=== PATIENT | female | born 1960 | race Caucasian/White ===

== ENCOUNTER 2021-12-29 10:19 | Emergency (ER) | payer OTHER, SELFPAY ==
[2021-12-29 10:30] VITALS: BP 176/89; PULSE 67; O2SAT 94
[2021-12-29 10:32] VITALS: BP 176/89; PULSE 57; RESP 20; TEMP 36.1; O2SAT 98; BMI 42.5
--- NOTE | 2021-12-29 11:11 | CRLHL7_ITS ---
For Patients: As a result of the Cures Act, medical imaging exams and procedure reports are released immediately into your electronic medical record. You may view this report before your referring provider. If you have questions, please contact your health care provider. INDICATION: Fall with pain. TECHNIQUE: Cervical spine 3 view. COMPARISON: None. FINDINGS: Bones: Alignment is normal. No fractures or significant bone lesions. No signs of acute injury. Joints: Degenerative disc spondylosis present at C5-6 and C6-7. Mild diffuse facet joint spondylosis. Soft tissues: Unremarkable. Dictated by Jose Ramirez MD @ 12/29/2021 12:41:27 PM (Electronically Signed)
--- NOTE | 2021-12-29 11:11 | CRLHL7_ITS ---
For Patients: As a result of the Century Cures Act, medical imaging exams and procedure reports are released immediately into your electronic medical record. You may view this report before your referring provider. If you have questions, please contact your health care provider. INDICATION: Fall with back pain. TECHNIQUE: Thoracic spine 2 view. COMPARISON: None. FINDINGS: Bones: Alignment is normal. No fractures or significant bone lesions. No sign of acute injury. Joints: Mild diffuse disc space narrowing. Soft tissues: Unremarkable. Dictated by Jose Ramirez MD @ 12/29/2021 12:43:26 PM (Electronically Signed)
--- NOTE | 2021-12-29 11:13 | ED.FALL ---
HPI - Fall General Chief Complaint: Fall/Minor Trauma Stated Complaint: Fell, hurt back of head/shoulder, dizzy Time Seen by Provider: 12/29/21 10:47 History of Present Illness HPI Narrative: This 61-year-old female comes in for evaluation of injuries from a fall that occurred at work just prior to arrival. She states that she stepped backwards and tripped on a Pallet. She landed on her bottom and then onto her back. She is not sure if she hit her head. She did not have loss of consciousness. She is complaining of pain in her neck and upper back. She states that 4 people helped her get up to a chair and then she transferred to a electric scooter an order to come here by car. She is not on any blood thinners. She states that this occurrence has triggered her anxiety and she feels a bit tremulous. Related Data Home Medications Medication Instructions Recorded Confirmed albuterol sulfate 90 mcg/actuation inhalation 12/29/21 aerosol inhaler (Ventolin HFA) atorvastatin 20 mg tablet mg 12/29/21 benzonatate 100 mg capsule mg PO 12/29/21 clonazepam 0.5 mg tablet mg 12/29/21 gabapentin 300 mg capsule mg 12/29/21 hydroxyzine pamoate 50 mg capsule mg 12/29/21 levothyroxine 100 mcg tablet mcg 12/29/21 naproxen 500 mg tablet mg 12/29/21 prazosin 2 mg capsule mg 12/29/21 risperidone 0.5 mg tablet mg 12/29/21 sertraline 100 mg tablet mg 12/29/21 sertraline 50 mg tablet mg 12/29/21 zolpidem 5 mg tablet mg 12/29/21 Previous Rx's Medication Instructions Recorded ketorolac 10 mg tablet 10 mg PO Q8H 5 days #15 tabs 12/29/21 Allergies Allergy/AdvReac Type Severity Reaction Status Date / Time methohexital Allergy Verified 12/29/21 10:31 demerol Allergy Uncoded 12/29/21 10:31 Review of Systems Status of ROS: Reports: 10 or more systems reviewed and unremarkable except as noted in History and below Narrative: Constitutional: No fevers, no weight gain or loss. Eyes: No discharge. No vision changes. HENT: No congestion, no sore throat, no ear pain. Cardiovascular: No chest pain, no palpitations. Respiratory: No shortness of breath, no wheezes, no cough. Gastrointestinal: No abdominal pain, no vomiting, no diarrhea. Genitourinary: No dysuria, no hematuria. Musculoskeletal: Normal range of motion. She reports some diffuse neck and upper back pain. Skin: No rashes, no pruritis. Neurological: No dizziness, weakness, sensory change, speech change. Endo/Heme/Allergies: No bruising or bleeding. No polydipsia. Pysch: no suicidality, no anxiety, no insomnia. All other systems reviewed and are negative. PFSH PFS Social History Smoking Status: Never smoker Do you use any of these nicotine containing products: None Second hand tobacco smoke exposure: No How often do you have a drink containing alcohol: never How often do you have six or more drinks on one occasion: Never AUDIT-C Alcohol total score: 0 Non-prescribed substance use: denies use Exam Narrative: Exam Narrative: Constitutional: No fevers, no weight gain or loss. Eyes: No discharge. No vision changes. HENT: No congestion, no sore throat, no ear pain. No sign of trauma to the scalp. No hematoma or skin injury. Cardiovascular: No chest pain, no palpitations. Respiratory: No shortness of breath, no wheezes, no cough. Gastrointestinal: No abdominal pain, no vomiting, no diarrhea. Genitourinary: No dysuria, no hematuria. Musculoskeletal: Normal range of motion. Diffuse pain in neck and upper back. No midline tenderness when palpating along her spine. No sign of external injury. Skin: No rashes, no pruritis. Neurological: No dizziness, weakness, sensory change, speech change. Endo/Heme/Allergies: No bruising or bleeding. No polydipsia. Pysch: no suicidality, no anxiety, no insomnia. All other systems reviewed and are negative. Const: Vital Signs, click to edit/add: Vital Signs - 24 hr 12/29/21 10:32 12/29/21 10:30 12/29/21 12:05 Temperature 96.9 F L Pulse Rate [Pulse Oximeter] 57 L 67 57 L Respiratory Rate 20 Blood Pressure [Le ft Forearm] 176/89 H 176/89 H 152/85 H Pulse Oximetry 98 94 95 Oxygen Delivery Me thod Room Air Room Air Room Air 12/29/21 11:30 Temperature Pulse Rate [Pulse Oximeter] 52 L Respiratory Rate Blood Pressure [Le ft Forearm] Pulse Oximetry 96 Oxygen Delivery Me thod Room Air Course Vital Signs Vital signs: Initial Vital Signs Pulse Rate 67 12/29/21 10:30 Blood Pressure 176/89 H 12/29/21 10:30 Blood Pressure Mean 118 12/29/21 10:30 Pulse Oximetry 94 12/29/21 10:30 Oxygen Delivery Method 12/29/21 10:30 Vital Signs Pulse Rate 67 12/29/21 10:30 Blood Pressure 176/89 H 12/29/21 10:30 Pulse Oximetry 94 12/29/21 10:30 Oxygen Delivery Method 12/29/21 10:30 Temperature 96.9 F L 12/29/21 10:32 Pulse Rate 57 L 12/29/21 12:05 Respiratory Rate 20 12/29/21 10:32 Blood Pressure 152/85 H 12/29/21 12:05 Pulse Oximetry 95 12/29/21 12:05 Oxygen Delivery Method 12/29/21 12:05 MDM - Fall MDM Narrative Medical decision making narrative: This patient comes in for evaluation after a fall that occurred at work prior to arrival. She did not have loss of consciousness. She is not showing any sign of neurologic deficit or altered level of consciousness. She does not have any scalp hematoma or injury to her head. She denies hitting her head and did not have loss of consciousness. She did complain of some neck and upper back pain. X-ray images of the cervical and thoracic spine returned with normal findings. The patient did receive an oral tablet of Ativan 0.5 mg which brought some relief to her anxiety symptoms and in directly to her discomfort also. Imaging Data XR Cervical Spine: Radiologist's impression: Bones: Alignment is normal. No fractures or significant bone lesions. No signs of acute injury. Joints: Degenerative disc spondylosis present at C5-6 and C6-7. Mild diffuse facet joint spondylosis. Soft tissues: Unremarkable. Discharge Plan Discharge Clinical Impression: Acute cervical myofascial strain, Fall Patient Disposition: Home, Self-Care Condition: Stable Additional Instructions: Take medication as needed and indicated. Increase activity as tolerated. Follow up with MD or return if worsening. Prescriptions: New ketorolac 10 mg tablet 10 mg PO Q8H 5 Days Qty: 15 0RF No Action atorvastatin 20 mg tablet clonazepam 0.5 mg tablet Label Comments: TAKE 1 TABLET BY MOUTH ONCE DAILY sertraline 100 mg tablet hydroxyzine pamoate 50 mg capsule levothyroxine 100 mcg tablet benzonatate 100 mg capsule PO Label Comments: TAKE 1 CAPSULE BY MOUTH THREE TIMES DAILY NEEDED FOR COUGH gabapentin 300 mg capsule Label Comments: TAKE 1 CAPSULE BY MOUTH THREE TIMES DAILY zolpidem 5 mg tablet Label Comments: TAKE 1 TABLET BY MOUTH AT BEDTIME NEEDED FOR SLEEP albuterol sulfate [Ventolin HFA] 90 mcg/actuation HFA aerosol inhaler INHALATION Label Comments: INHALE 1 TO 2 PUFFS BY MOUTH EVERY 4 HOURS NEEDED FOR SHORTNESS OF BREATH OR WHEEZING sertraline 50 mg tablet Label Comments: TAKE 3 TABLETS BY MOUTH ONCE DAILY risperidone 0.5 mg tablet Label Comments: TAKE 1 TABLET BY MOUTH AT BEDTIME prazosin 2 mg capsule Label Comments: TAKE 1 CAPSULE BY MOUTH AT BEDTIME naproxen 500 mg tablet Label Comments: TAKE 1 TABLET BY MOUTH EVERY 12 HOURS NEEDED FOR PAIN Follow Up/Referrals: Joyce Dean DO [Primary Care Provider] - Stand Alone Forms: [facility] Info Instructions
[2021-12-29] MEDS: LORazepam 0.5 MG TABLET PO (11:14)
[2021-12-29 11:30] VITALS: PULSE 52; O2SAT 96
[2021-12-29 12:05] VITALS: BP 152/85; PULSE 57; O2SAT 95
[2021-12-29 13:00] VITALS: BP 154/78; PULSE 59; O2SAT 97
== END 2021-12-29 13:08 | disposition home or self-care (01) ==
PROVIDERS: Emergency Provider Emergency Medicine Emergency Medical Services; PCP Family Medicine
DX: S16.1XXA Strain of muscle, fascia and tendon at neck level, initial encounter (principal); W01.0XXA Fall on same level from slipping, tripping and stumbling without subsequent striking against object, initial encounter; Y93.9 Activity, unspecified; Y92.9 Unspecified place or not applicable; Y99.0 Civilian activity done for income or pay
CPT/HCPCS: 72040; 72070; 99283; 99284; A9270

== ENCOUNTER 2022-01-07 19:59 | Inpatient (IN) | payer OTHER, SELFPAY ==
[2022-01-07 20:00] VITALS: BP 139/109; PULSE 79; RESP 16; TEMP 35.8; O2SAT 94
[2022-01-07 20:13] VITALS: BP 139/109; BP 148/87; PULSE 79; RESP 16; TEMP 35.8; O2SAT 96; BMI 25.2
[2022-01-07 20:30] VITALS: BP 128/74
[2022-01-07 20:40] VITALS: O2SAT 98
--- NOTE | 2022-01-07 20:40 | ED.GENADULT ---
HPI - General Adult General Time Seen by Provider: 00:56 <Jos Wang MD - Last Filed: 01/08/22 01:09> Date Seen: 01/08/22 <Jos Wang MD - Last Filed: 01/08/22 01:09> Chief complaint: Abdominal Pain <Emily Roman MD - Last Filed: 01/16/22 22:12> Stated complaint: Intense pain in upper ABD, Vomiting <Emily Roman MD - Last Filed: 01/16/22 22:12> Time Seen by Provider: 01/07/22 20:16 <Emily Roman MD - Last Filed: 01/16/22 22:12> Source: patient <Emily Roman MD - Last Filed: 01/16/22 22:12> Mode of arrival: ambulatory <Emily Roman MD - Last Filed: 01/16/22 22:12> Limitations: no limitations <Emily Roman MD - Last Filed: 01/16/22 22:12> History of Present Illness HPI narrative: 61-year-old female coming in today concerned about nausea and vomiting as well as epigastric pain. She states that she has had nausea and vomiting for the last 11 days straight. She states that she vomits any time she puts anything her mouth, and she states that she has at least 7-8 bowel movements per day on a good day. She is concerned because she has not been able to keep down her medication also. She denies any weight loss. She denies any blood in her stool or urine. She states that she is urinating normally without dysuria increased frequency or urgency, she continues to urinate every day. She describes an epigastric burning sensation that is present all the time. Gets worse when she vomits. She she states she has been having fevers on and off and she feels hot and sweaty often times. She denies any rashes. She denies any recent traveling. She denies any shortness of breath. She denies any lower abdominal discomfort. Denies any recent antibiotic use. Past medical history significant for anxiety, depression, insomnia, hypothyroidism, hyperlipidemia, obesity, asthma. <Emily Roman MD - Last Filed: 01/16/22 22:12> 61-year-old female presents with 2 week history of on and off vomiting diarrhea and burning epigastric pain. This began about 2 weeks ago. She is concerned it occurred related to an incident at work where the toilets were backing up and she was tasked with cleaning up the mass. She believes she had exposure from the water splashing into her face. Within a few hours of being at work she became ill with vomiting and diarrhea. He was fairly severe for about 5 days but then she seemed to get better for a few days and then about 5 days ago it started in again with the same symptoms. For the last 5 days she has had vomiting a few times a day, diarrhea multiple times a day and persistent epigastric burning sensation. She has been unable to keep down significant food or fluid. She has had no fever. There has not been no blood in her emesis but she did wonder if her diarrhea was red in color. Her looked at the stool water and thought it might have been due to the red Gatorade that she was drinking. She has had no previous history of significant gastrointestinal problems. No history of epigastric pain diarrhea or vomiting. She may have had a history of a gastric ulcer in the past. She has had a cholecystectomy. She reports no urinary problems. No shortness of breath. She has no chest pain but she does report that the epigastric burning is right below the distal breast bone area. It feels to her like it is coming from her stomach. She has had no other exposures. No travel history. No recent antibiotics. <Jos Wang MD - Last Filed: 01/08/22 01:09> Related Data Home medications: Home Medications Medication Instructions Recorded Confirmed atorvastatin 20 mg tablet 20 mg PO HS 12/29/21 01/08/22 clonazepam 0.5 mg tablet 0.5 mg PO HS 12/29/21 01/08/22 gabapentin 300 mg capsule 300 mg PO TID 12/29/21 01/08/22 hydroxyzine pamoate 50 mg capsule 50 mg PO Q6H PRN nausea and 12/29/21 01/08/22 vomiting levothyroxine 100 mcg tablet 100 mcg PO DAILY 12/29/21 01/08/22 diclofenac sodium 1 % topical gel 4 g topical QID PRN 01/08/22 01/08/22 propranolol 10 mg tablet 10 mg PO BID 01/08/22 01/08/22 sertraline 100 mg tablet 150 mg PO DAILY 01/08/22 01/08/22 zolpidem 6.25 mg tablet,extended 6.25 mg PO HS 01/08/22 01/08/22 release,multiphase Previous Rx's Medication Instructions Recorded nirmatrelvir 300 mg (150 mg 2 ea PO BID 4 days #16 ea 01/09/22 x2)-ritonavir 100 mg tablet,dose pack(EUA) omeprazole 20 mg capsule,delayed 20 mg PO DAILY PRN #30 caps 01/09/22 release vancomycin 125 mg capsule 125 mg PO QID #40 caps 01/09/22 <Emily Roman MD - Last Filed: 01/16/22 22:12> Allergies/adverse reactions: Allergies Allergy/AdvReac Type Severity Reaction Status Date / Time methohexital Allergy Verified 01/08/22 02:42 demerol Allergy Uncoded 01/07/22 23:46 <Emily Roman MD - Last Filed: 01/16/22 22:12> Review of Systems Status of ROS: Reports: 10 or more systems reviewed and unremarkable except as noted in History and below <Emily Roman MD - Last Filed: 01/16/22 22:12> Narrative: She reports no other health concerns recently. No fever, cold, cough, chest pain, shortness of breath, abdominal pain other than the last 2 weeks or gastrointestinal problems other than the last 2 weeks. No urinary problems no history of bleeding or blood clotting problems no rash. <Jos Wang MD - Last Filed: 01/08/22 01:09> [facility] Medical History: Medical History (Updated 01/13/22 @ 00:00 by ) Anxiety COVID-19 virus infection Depression Gastroesophageal reflux History of electroconvulsive therapy Hyperlipidemia Hypothyroidism Obstructive sleep apnea PTSD (post-traumatic stress disorder) <Emily Roman MD - Last Filed: 01/16/22 22:12> Surgical History: Surgical History (Updated 01/08/22 @ 01:04 by Jos Wang MD) History of cholecystectomy History of colonoscopy History of D&C History of hysterectomy History of repair of right rotator cuff History of total knee arthroplasty Hx of tonsillectomy <Emily Roman MD - Last Filed: 01/16/22 22:12> Family History: Family History (Updated 01/08/22 @ 01:04 by Jos Wang MD) Mother Alzheimers disease Father Coronary artery disease Thyroid disease <Emily Roman MD - Last Filed: 01/16/22 22:12> Social History: Social History (Updated 01/08/22 @ 01:06 by Jos Wang MD) Narrative: 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 She works at [employer]. She gets primary care at the [facility] in [place]. Code status is full. She does not smoke. She does not drink alcohol. No current recreational drug use Highest level of school completed/degree received: high school graduate Smoking Status: Never smoker Do you use any of these nicotine containing products: None Second hand tobacco smoke exposure: No How often do you have a drink containing alcohol: never How often do you have six or more drinks on one occasion: Never AUDIT-C Alcohol total score: 0 Non-prescribed substance use: denies use Caffeine: Yes (Coffee Daily.) <Emily Roman MD - Last Filed: 01/16/22 22:12> Exam Narrative: Exam Narrative: Patient is not tachypneic, tachycardic or hypotensive. Overweight patient in no acute distress, but she is quite anxious. Alert and oriented. Answers questions appropriately. Patient speaks in full sentences without needing to catch her breath. HEENT: Normocephalic atraumatic. Pupils are equally round reactive to light. Extraocular muscles are intact. Conjunctivae are moist without any icterus noted. Moist mucous membranes. Posterior pharynx is normal. Neck is soft without any lymphadenopathy or thyromegaly. No masses are appreciated. Cardiovascular: Heart is regular rate and rhythm S1 and S2 are present without any murmurs. Lungs: Clear to auscultation bilaterally no wheezes rhonchi or rales are appreciated. Patient takes deep breaths without any discomfort. Abdomen: Soft and nondistended with normal bowel sounds. No guarding or rebound. She has minimal epigastric tenderness on palpation. No right upper quadrant or left upper quadrant tenderness. The remainder of the abdomen is without tenderness. Extremities: Bilateral lower extremities are without edema. Normal DP and PT pulses. Skin: Well perfused without any obvious rashes. <Emily Roman MD - Last Filed: 01/16/22 22:12> Exam Narrative: She is alert and appears in no distress. She is tired appearing. She gives her own history. She is oriented to her circumstances. Head is without trauma. Eyes are normal. Sclerae nonicteric. Oropharynx with dry mucous membranes. Neck is supple without mass or adenopathy. Respirations are clear to auscultation. Cardiovascular: S1, S2, regular rate and rhythm. No murmur gallop or rub. Abdomen: Bowel sounds active. Abdomen is soft without tenderness or mass. External genitalia normal. Extremities with 1+ edema in both legs. Intact pedal pulses and sensation. No rash. <Jos Wang MD - Last Filed: 01/08/22 01:09> Const: Vital Signs, click to edit/add: Vital Signs - 24 hr 01/07/22 20:13 01/07/22 20:40 01/07/22 20:51 Temperature 96.4 F L Pulse Rate 73 Pulse Rate [Left P ulse Oximeter] 79 Respiratory Rate 16 Blood Pressure [Ri ght Upper Arm] 139/109 H Pulse Oximetry 96 98 94 Oxygen Delivery Me thod Room Air 01/07/22 20:00 01/07/22 20:13 01/07/22 20:30 Temperature 96.4 F L Pulse Rate Pulse Rate [Left P ulse Oximeter] 79 Respiratory Rate 16 Blood Pressure [Ri ght Upper Arm] 139/109 H 148/87 H 128/74 Pulse Oximetry 94 Oxygen Delivery Me thod Room Air <Emily Roman MD - Last Filed: 01/16/22 22:12> Vital Signs, click to edit/add: Vital Signs - 24 hr 01/07/22 20:13 01/07/22 20:40 01/07/22 20:51 Temperature 96.4 F L Pulse Rate 73 Pulse Rate [Left P ulse Oximeter] 79 Respiratory Rate 16 Blood Pressure [Ri ght Upper Arm] 139/109 H Pulse Oximetry 96 98 94 Oxygen Delivery Me thod Room Air 01/07/22 20:00 01/07/22 20:13 01/07/22 20:30 Temperature 96.4 F L Pulse Rate Pulse Rate [Left P ulse Oximeter] 79 Respiratory Rate 16 Blood Pressure [Ri ght Upper Arm] 139/109 H 148/87 H 128/74 Pulse Oximetry 94 Oxygen Delivery Me thod Room Air <Dotty Lester MD - Last Filed: 01/08/22 00:25> Vital Signs, click to edit/add: Vital Signs - 24 hr 01/07/22 20:13 01/07/22 20:40 01/07/22 20:51 Temperature 96.4 F L Pulse Rate 73 Pulse Rate [Left P ulse Oximeter] 79 Respiratory Rate 16 Blood Pressure [Ri ght Upper Arm] 139/109 H Pulse Oximetry 96 98 94 Oxygen Delivery Me thod Room Air 01/07/22 20:00 01/07/22 20:13 01/07/22 20:30 Temperature 96.4 F L Pulse Rate Pulse Rate [Left P ulse Oximeter] 79 Respiratory Rate 16 Blood Pressure [Ri ght Upper Arm] 139/109 H 148/87 H 128/74 Pulse Oximetry 94 Oxygen Delivery Me thod Room Air <Jos Wang MD - Last Filed: 01/08/22 01:09> Course Course Hospital Course: IV was established and patient was started with normal saline and Zofran. Labs were drawn. Given the location of her discomfort I did go ahead and do an EKG as well, read by me, shows normal sinus rhythm with a pulse of 76. At this time, care will be transferred to oncoming physician. <Emily Roman MD - Last Filed: 01/16/22 22:12> Vital Signs Vital signs: Initial Vital Signs Temperature 96.4 F L 01/07/22 20:00 Temperature Source Temporal Artery Scan 01/07/22 20:00 Pulse Rate 79 01/07/22 20:00 Pulse Rhythm 01/07/22 20:00 Pulse Strength 3+ Normal 01/07/22 20:00 Respiratory Rate 16 01/07/22 20:00 Blood Pressure 139/109 H 01/07/22 20:00 Blood Pressure Mean 119 01/07/22 20:00 Pulse Oximetry 94 01/07/22 20:00 Oxygen Delivery Method 01/07/22 20:00 Vital Signs Temperature 96.4 F L 01/07/22 20:00 Pulse Rate 79 01/07/22 20:00 Respiratory Rate 16 01/07/22 20:00 Blood Pressure 139/109 H 01/07/22 20:00 Pulse Oximetry 94 01/07/22 20:00 Oxygen Delivery Method 01/07/22 20:00 Temperature 97.5 F L 01/09/22 11:00 Pulse Rate 65 01/09/22 11:00 Respiratory Rate 16 01/09/22 11:00 Blood Pressure 140/96 H 01/09/22 11:00 Pulse Oximetry 93 01/09/22 11:00 Oxygen Delivery Method 01/09/22 11:00 <Emily Roman MD - Last Filed: 01/16/22 22:12> Initial Vital Signs Temperature 96.4 F L 01/07/22 20:00 Temperature Source Temporal Artery Scan 01/07/22 20:00 Pulse Rate 79 01/07/22 20:00 Pulse Rhythm 01/07/22 20:00 Pulse Strength 3+ Normal 01/07/22 20:00 Respiratory Rate 16 01/07/22 20:00 Blood Pressure 139/109 H 01/07/22 20:00 Blood Pressure Mean 119 01/07/22 20:00 Pulse Oximetry 94 01/07/22 20:00 Oxygen Delivery Method 01/07/22 20:00 Vital Signs Temperature 96.4 F L 01/07/22 20:00 Pulse Rate 79 01/07/22 20:00 Respiratory Rate 16 01/07/22 20:00 Blood Pressure 139/109 H 01/07/22 20:00 Pulse Oximetry 94 01/07/22 20:00 Oxygen Delivery Method 01/07/22 20:00 Temperature 97.5 F L 01/09/22 11:00 Pulse Rate 65 01/09/22 11:00 Respiratory Rate 16 01/09/22 11:00 Blood Pressure 140/96 H 01/09/22 11:00 Pulse Oximetry 93 01/09/22 11:00 Oxygen Delivery Method 01/09/22 11:00 <Dotty Lester MD - Last Filed: 01/08/22 00:25> Initial Vital Signs Temperature 96.4 F L 01/07/22 20:00 Temperature Source Temporal Artery Scan 01/07/22 20:00 Pulse Rate 79 01/07/22 20:00 Pulse Rhythm 01/07/22 20:00 Pulse Strength 3+ Normal 01/07/22 20:00 Respiratory Rate 16 01/07/22 20:00 Blood Pressure 139/109 H 01/07/22 20:00 Blood Pressure Mean 119 01/07/22 20:00 Pulse Oximetry 94 01/07/22 20:00 Oxygen Delivery Method 01/07/22 20:00 Vital Signs Temperature 96.4 F L 01/07/22 20:00 Pulse Rate 79 01/07/22 20:00 Respiratory Rate 16 01/07/22 20:00 Blood Pressure 139/109 H 01/07/22 20:00 Pulse Oximetry 94 01/07/22 20:00 Oxygen Delivery Method 01/07/22 20:00 Temperature 97.5 F L 01/09/22 11:00 Pulse Rate 65 01/09/22 11:00 Respiratory Rate 16 01/09/22 11:00 Blood Pressure 140/96 H 01/09/22 11:00 Pulse Oximetry 93 01/09/22 11:00 Oxygen Delivery Method 01/09/22 11:00 <Jos Wang MD - Last Filed: 01/08/22 01:09> Medical Decision Making MDM Narrative Medical decision making narrative: Reviewed labs, notable for elevated liver transaminases, normal bilirubin. C diff noted to be positive. Discussed with patient, she does not have any known prior history of elevated transaminases, denies alcohol intake. 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 This certainly could have been her C diff exposure. I elected to perform a CT due to the fact her symptoms did not improve very well with fluids, Zofran, Carafate. Ultrasound not available this time of night. This did not show any other abnormalities besides some renal cysts. We should consider doing a ultrasound in the morning. Will start the patient on oral vancomycin but I am concerned about the fact that she has had significant nausea and vomiting for the last 11 days and is not appear to be able to hold down adequate nutrition at this time. I recommended hospitalization, repeat liver enzymes, ultrasound and IV hydration until she can support her own nutritional needs at home. Dr. Wang accepts admission. <Dotty Lester MD - Last Filed: 01/08/22 00:25> Lab Data Lab results narrative: C diff negative but C diff toxin is positive. <Jos Wang MD - Last Filed: 01/08/22 01:09> Labs: Lab Results 01/07/22 01/07/22 01/07/22 Range/Units 21:03 21:03 21:03 WBC 5.90 (4.50-11.00) K/uL RBC 4.60 (4.00-5.20) m/uL Hgb 13.5 (12.0-16.0) gm/dL Hct 41.4 (33.0-51.0) % MCV 90 (80-100) fL MCH 29 (26-34) pg MCHC 33 (32-36) gm/dL RDW Coeff of Pranav 12.7 (11.5-15.5) % Plt Count 141 (140-440) K/uL Neut % (Auto) 66.4 (42.0-72.0) % Lymph % (Auto) 26.1 (20-44) % [place] % (Auto) 6.6 (0.0-11.0) % Eos % (Auto) 0.7 (0.0-7.0) % Baso % (Auto) 0.0 (0.0-3.0) % Neut # (Auto) 3.92 (1.7-7.0) K/uL Lymph # (Auto) 1.54 (0.90-2.90) K/uL [place] # (Auto) 0.40 (0.00-0.90) K/UL Eos # (Auto) 0.04 (0.00-0.50) K/uL Baso # (Auto) 0.00 (0.00-0.30) K/uL Abs Immat Gran (auto) 0.01 (0.00-0.30) K/uL Sodium 140 (135-149) mmol/L Potassium 3.6 (3.6-5.1) mmol/L Chloride 110 (96-114) mmol/L Carbon Dioxide 21 (20-32) mmol/L BUN 11 (7-30) mg/dL Creatinine 0.6 (0.5-1.5) mg/dL Estimated Creat Clear 83.51 Estimated GFR 103 ml/min Glucose 111 (60-115) mg/dL Lactate 0.8 (0.5-1.9) mmol/L Calcium 8.5 (8.4-10.6) mg/dL Total Bilirubin 0.6 (0.1-1.5) mg/dL Direct Bilirubin 0.2 (0.0-0.5) mg/dL AST 310 H (12-35) U/L ALT 249 H (4-35) U/L Alkaline Phosphatase 111 (40-150) U/L Troponin I < 0.01 L (0.01-0.04) ng/mL C-Reactive Protein < 0.5 L (0.5-1.0) mg/dL Total Protein 6.5 (6.0-8.3) g/dL Albumin 4.0 (3.3-5.0) g/dL Lipase 133 (23-300) U/L Stl C.difficile Tox PCR (Negative) St C. diff Tox Epid 027 (Negative) SARS-CoV-2 (PCR) (Negative) 01/07/22 01/08/22 Range/Units 21:48 00:42 WBC (4.50-11.00) K/uL RBC (4.00-5.20) m/uL Hgb (12.0-16.0) gm/dL Hct (33.0-51.0) % MCV (80-100) fL MCH (26-34) pg MCHC (32-36) gm/dL RDW Coeff of Pranav (11.5-15.5) % Plt Count (140-440) K/uL Neut % (Auto) (42.0-72.0) % Lymph % (Auto) (20-44) % [place] % (Auto) (0.0-11.0) % Eos % (Auto) (0.0-7.0) % Baso % (Auto) (0.0-3.0) % Neut # (Auto) (1.7-7.0) K/uL Lymph # (Auto) (0.90-2.90) K/uL [place] # (Auto) (0.00-0.90) K/UL Eos # (Auto) (0.00-0.50) K/uL Baso # (Auto) (0.00-0.30) K/uL Abs Immat Gran (auto) (0.00-0.30) K/uL Sodium (135-149) mmol/L Potassium (3.6-5.1) mmol/L Chloride (96-114) mmol/L Carbon Dioxide (20-32) mmol/L BUN (7-30) mg/dL Creatinine (0.5-1.5) mg/dL Estimated Creat Clear Estimated GFR ml/min Glucose (60-115) mg/dL Lactate (0.5-1.9) mmol/L Calcium (8.4-10.6) mg/dL Total Bilirubin (0.1-1.5) mg/dL Direct Bilirubin (0.0-0.5) mg/dL AST (12-35) U/L ALT (4-35) U/L Alkaline Phosphatase (40-150) U/L Troponin I (0.01-0.04) ng/mL C-Reactive Protein (0.5-1.0) mg/dL Total Protein (6.0-8.3) g/dL Albumin (3.3-5.0) g/dL Lipase (23-300) U/L Stl C.difficile Tox PCR POSITIVE A* (Negative) St C. diff Tox Epid 027 PRESUMPTIVE NEGATIVE (Negative) SARS-CoV-2 (PCR) POSITIVE SARS-CoV-2 A (Negative) <Emily Roman MD - Last Filed: 01/16/22 22:12> Lab Results 01/07/22 01/07/22 01/07/22 Range/Units 21:03 21:03 21:03 WBC 5.90 (4.50-11.00) K/uL RBC 4.60 (4.00-5.20) m/uL Hgb 13.5 (12.0-16.0) gm/dL Hct 41.4 (33.0-51.0) % MCV 90 (80-100) fL MCH 29 (26-34) pg MCHC 33 (32-36) gm/dL RDW Coeff of Pranav 12.7 (11.5-15.5) % Plt Count 141 (140-440) K/uL Neut % (Auto) 66.4 (42.0-72.0) % Lymph % (Auto) 26.1 (20-44) % [place] % (Auto) 6.6 (0.0-11.0) % Eos % (Auto) 0.7 (0.0-7.0) % Baso % (Auto) 0.0 (0.0-3.0) % Neut # (Auto) 3.92 (1.7-7.0) K/uL Lymph # (Auto) 1.54 (0.90-2.90) K/uL [place] # (Auto) 0.40 (0.00-0.90) K/UL Eos # (Auto) 0.04 (0.00-0.50) K/uL Baso # (Auto) 0.00 (0.00-0.30) K/uL Abs Immat Gran (auto) 0.01 (0.00-0.30) K/uL Sodium 140 (135-149) mmol/L Potassium 3.6 (3.6-5.1) mmol/L Chloride 110 (96-114) mmol/L Carbon Dioxide 21 (20-32) mmol/L BUN 11 (7-30) mg/dL Creatinine 0.6 (0.5-1.5) mg/dL Estimated Creat Clear 83.51 Estimated GFR 103 ml/min Glucose 111 (60-115) mg/dL Lactate 0.8 (0.5-1.9) mmol/L Calcium 8.5 (8.4-10.6) mg/dL Total Bilirubin 0.6 (0.1-1.5) mg/dL Direct Bilirubin 0.2 (0.0-0.5) mg/dL AST 310 H (12-35) U/L ALT 249 H (4-35) U/L Alkaline Phosphatase 111 (40-150) U/L Troponin I < 0.01 L (0.01-0.04) ng/mL C-Reactive Protein < 0.5 L (0.5-1.0) mg/dL Total Protein 6.5 (6.0-8.3) g/dL Albumin 4.0 (3.3-5.0) g/dL Lipase 133 (23-300) U/L Stl C.difficile Tox PCR (Negative) St C. diff Tox Epid 027 (Negative) SARS-CoV-2 (PCR) (Negative) 01/07/22 01/08/22 Range/Units 21:48 00:42 WBC (4.50-11.00) K/uL RBC (4.00-5.20) m/uL Hgb (12.0-16.0) gm/dL Hct (33.0-51.0) % MCV (80-100) fL MCH (26-34) pg MCHC (32-36) gm/dL RDW Coeff of Pranav (11.5-15.5) % Plt Count (140-440) K/uL Neut % (Auto) (42.0-72.0) % Lymph % (Auto) (20-44) % [place] % (Auto) (0.0-11.0) % Eos % (Auto) (0.0-7.0) % Baso % (Auto) (0.0-3.0) % Neut # (Auto) (1.7-7.0) K/uL Lymph # (Auto) (0.90-2.90) K/uL [place] # (Auto) (0.00-0.90) K/UL Eos # (Auto) (0.00-0.50) K/uL Baso # (Auto) (0.00-0.30) K/uL Abs Immat Gran (auto) (0.00-0.30) K/uL Sodium (135-149) mmol/L Potassium (3.6-5.1) mmol/L Chloride (96-114) mmol/L Carbon Dioxide (20-32) mmol/L BUN (7-30) mg/dL Creatinine (0.5-1.5) mg/dL Estimated Creat Clear Estimated GFR ml/min Glucose (60-115) mg/dL Lactate (0.5-1.9) mmol/L Calcium (8.4-10.6) mg/dL Total Bilirubin (0.1-1.5) mg/dL Direct Bilirubin (0.0-0.5) mg/dL AST (12-35) U/L ALT (4-35) U/L Alkaline Phosphatase (40-150) U/L Troponin I (0.01-0.04) ng/mL C-Reactive Protein (0.5-1.0) mg/dL Total Protein (6.0-8.3) g/dL Albumin (3.3-5.0) g/dL Lipase (23-300) U/L Stl C.difficile Tox PCR POSITIVE A* (Negative) St C. diff Tox Epid 027 PRESUMPTIVE NEGATIVE (Negative) SARS-CoV-2 (PCR) POSITIVE SARS-CoV-2 A (Negative) <Dotty Lester MD - Last Filed: 01/08/22 00:25> Lab Results 01/07/22 01/07/22 01/07/22 Range/Units 21:03 21:03 21:03 WBC 5.90 (4.50-11.00) K/uL RBC 4.60 (4.00-5.20) m/uL Hgb 13.5 (12.0-16.0) gm/dL Hct 41.4 (33.0-51.0) % MCV 90 (80-100) fL MCH 29 (26-34) pg MCHC 33 (32-36) gm/dL RDW Coeff of Pranav 12.7 (11.5-15.5) % Plt Count 141 (140-440) K/uL Neut % (Auto) 66.4 (42.0-72.0) % Lymph % (Auto) 26.1 (20-44) % [place] % (Auto) 6.6 (0.0-11.0) % Eos % (Auto) 0.7 (0.0-7.0) % Baso % (Auto) 0.0 (0.0-3.0) % Neut # (Auto) 3.92 (1.7-7.0) K/uL Lymph # (Auto) 1.54 (0.90-2.90) K/uL [place] # (Auto) 0.40 (0.00-0.90) K/UL Eos # (Auto) 0.04 (0.00-0.50) K/uL Baso # (Auto) 0.00 (0.00-0.30) K/uL Abs Immat Gran (auto) 0.01 (0.00-0.30) K/uL Sodium 140 (135-149) mmol/L Potassium 3.6 (3.6-5.1) mmol/L Chloride 110 (96-114) mmol/L Carbon Dioxide 21 (20-32) mmol/L BUN 11 (7-30) mg/dL Creatinine 0.6 (0.5-1.5) mg/dL Estimated Creat Clear 83.51 Estimated GFR 103 ml/min Glucose 111 (60-115) mg/dL Lactate 0.8 (0.5-1.9) mmol/L Calcium 8.5 (8.4-10.6) mg/dL Total Bilirubin 0.6 (0.1-1.5) mg/dL Direct Bilirubin 0.2 (0.0-0.5) mg/dL AST 310 H (12-35) U/L ALT 249 H (4-35) U/L Alkaline Phosphatase 111 (40-150) U/L Troponin I < 0.01 L (0.01-0.04) ng/mL C-Reactive Protein < 0.5 L (0.5-1.0) mg/dL Total Protein 6.5 (6.0-8.3) g/dL Albumin 4.0 (3.3-5.0) g/dL Lipase 133 (23-300) U/L Stl C.difficile Tox PCR (Negative) St C. diff Tox Epid 027 (Negative) SARS-CoV-2 (PCR) (Negative) 01/07/22 01/08/22 Range/Units 21:48 00:42 WBC (4.50-11.00) K/uL RBC (4.00-5.20) m/uL Hgb (12.0-16.0) gm/dL Hct (33.0-51.0) % MCV (80-100) fL MCH (26-34) pg MCHC (32-36) gm/dL RDW Coeff of Pranav (11.5-15.5) % Plt Count (140-440) K/uL Neut % (Auto) (42.0-72.0) % Lymph % (Auto) (20-44) % [place] % (Auto) (0.0-11.0) % Eos % (Auto) (0.0-7.0) % Baso % (Auto) (0.0-3.0) % Neut # (Auto) (1.7-7.0) K/uL Lymph # (Auto) (0.90-2.90) K/uL [place] # (Auto) (0.00-0.90) K/UL Eos # (Auto) (0.00-0.50) K/uL Baso # (Auto) (0.00-0.30) K/uL Abs Immat Gran (auto) (0.00-0.30) K/uL Sodium (135-149) mmol/L Potassium (3.6-5.1) mmol/L Chloride (96-114) mmol/L Carbon Dioxide (20-32) mmol/L BUN (7-30) mg/dL Creatinine (0.5-1.5) mg/dL Estimated Creat Clear Estimated GFR ml/min Glucose (60-115) mg/dL Lactate (0.5-1.9) mmol/L Calcium (8.4-10.6) mg/dL Total Bilirubin (0.1-1.5) mg/dL Direct Bilirubin (0.0-0.5) mg/dL AST (12-35) U/L ALT (4-35) U/L Alkaline Phosphatase (40-150) U/L Troponin I (0.01-0.04) ng/mL C-Reactive Protein (0.5-1.0) mg/dL Total Protein (6.0-8.3) g/dL Albumin (3.3-5.0) g/dL Lipase (23-300) U/L Stl C.difficile Tox PCR POSITIVE A* (Negative) St C. diff Tox Epid 027 PRESUMPTIVE NEGATIVE (Negative) SARS-CoV-2 (PCR) POSITIVE SARS-CoV-2 A (Negative) <Jos Wang MD - Last Filed: 01/08/22 01:09> Discharge Plan Discharge Clinical Impression: C. difficile enteritis, Acute hepatitis <Emily Roman MD - Last Filed: 01/16/22 22:12> Patient Disposition: Admitted As Inpatient <Emily Roman MD - Last Filed: 01/16/22 22:12> Condition: Improved <Emily Roman MD - Last Filed: 01/16/22 22:12> Activity Level: No Restrictions <Emily Roman MD - Last Filed: 01/16/22 22:12> No Restrictions <Dotty Lester MD - Last Filed: 01/08/22 00:25> No Restrictions <Jos Wang MD - Last Filed: 01/08/22 01:09> Discharge Diet: Regular <Emily Roman MD - Last Filed: 01/16/22 22:12> Regular <Dotty Lester MD - Last Filed: 01/08/22 00:25> Regular <Jos Wang MD - Last Filed: 01/08/22 01:09>
[2022-01-07 20:51] VITALS: PULSE 73; O2SAT 94
[2022-01-07] MEDS: 0.9 % SODIUM CHLORIDE 1000 ml 1,000 ML IV (21:00)
[2022-01-07] MEDS: ONDANSETRON 2 MG/ML inj 4 MG IVP (21:00)
[2022-01-07 21:07] LABS: Lactate* 0.8 mmol/L (0.5-1.9)
[2022-01-07 21:09] LABS: Eosinophils Absolute Auto 0.04 K/uL (0.00-0.50); Eosinophils Percent Auto 0.7 % (0.0-7.0); Hematocrit 41.4 % (33.0-51.0); Hemoglobin* 13.5 gm/dL (12.0-16.0); Immature Granulocytes Abs Auto 0.01 K/uL (0.00-0.30); Lymphocytes Absolute Auto 1.54 K/uL (0.90-2.90); Lymphocytes Percent Auto 26.1 % (20-44); Mean Corpuscular HGB Conc 33 gm/dL (32-36); Mean Corpuscular Hemoglobin 29 pg (26-34); Mean Corpuscular Volume 90 fL (80-100); Monocytes Percent Auto 6.6 % (0.0-11.0); Neutrophils Absolute Auto 3.92 K/uL (1.7-7.0); Neutrophils Percent Auto 66.4 % (42.0-72.0); Platelet Count* 141 K/uL (140-440); RDW Coefficient of Variation % 12.7 % (11.5-15.5)
[2022-01-07 21:10] LABS: Slide Review Reflex No
[2022-01-07] MEDS: SUCRALFATE 1 GM TABLET PO (21:15)
--- NOTE | 2022-01-07 21:17 | ED.NURSE ---
Report received from [facility].
[2022-01-07 21:25] LABS: Chloride* 110 mmol/L (96-114); Sodium* 140 mmol/L (135-149)
[2022-01-07 21:26] LABS: Potassium* 3.6 mmol/L (3.6-5.1)
[2022-01-07 21:27] LABS: Creatinine* 0.6 mg/dL (0.5-1.5); Est. Creatinine Clearance* 83.51; Estimated Glomerular Filt Rate 103 ml/min
[2022-01-07 21:28] LABS: Alanine Aminotransferase* 249 U/L (4-35); Alkaline Phosphatase* 111 U/L (40-150); Aspartate Amino Transferase* 310 U/L (12-35); Bilirubin Direct* 0.2 mg/dL (0.0-0.5); Bilirubin Total* 0.6 mg/dL (0.1-1.5); Blood Urea Nitrogen* 11 mg/dL (7-30); Calcium* 8.5 mg/dL (8.4-10.6); Carbon Dioxide* 21 mmol/L (20-32); Glucose* 111 mg/dL (60-115); Lipase* 133 U/L (23-300); Total Protein* 6.5 g/dL (6.0-8.3)
[2022-01-07 21:40] LABS: C Reactive Protein* < 0.5 mg/dL (0.5-1.0); Troponin I* < 0.01 ng/mL (0.01-0.04)
[2022-01-07 22:41] LABS: CDIFFEPI 027 PRESUMPTIVE NEGATIVE (Negative)
--- NOTE | 2022-01-07 22:52 | CRLHL7_ITS ---
For Patients: As a result of the Cures Act, medical imaging exams and procedure reports are released immediately into your electronic medical record. You may view this report before your referring provider. If you have questions, please contact your health care provider. INDICATION: Upper mid abdominal pain, nausea, elevated liver function test TECHNIQUE: CT Abdomen and pelvis with i.v. contrast. Coronal and sagittal reformats were obtained. CONTRAST: 98 mL Isovue 370 COMPARISON: None FINDINGS: Lower chest: Unremarkable. Liver: Unremarkable. Spleen: Unremarkable. Pancreas: Unremarkable. Gallbladder: Previous cholecystectomy noted with mild intrahepatic biliary ductal dilatation seen. Kidney: Bilateral renal cysts are present measuring up to 7.5 cm. Adrenal: Unremarkable. Bowel: Unremarkable. The appendix is not visualized. Vascular: Unremarkable. Lymph: Unremarkable. Peritoneum: Unremarkable. No pneumoperitoneum is seen. No significant ascites is noted. Pelvis: The patient is status post hysterectomy. Soft tissue: Unremarkable. Bone: Unremarkable for age. IMPRESSION: 1. Mild intrahepatic biliary ductal dilatation is seen. This may be related to prior cholecystectomy. Dictated by Ji Mckeon MD @ 01/07/2022 11:49:02 PM Please note that all CT scans at this facility use dose modulation, iterative reconstruction, and/or weight-based dosing when appropriate to reduce radiation dose to as low as reasonably achievable. Dictated by: Ji Mckeon MD @ 01/07/2022 23:49:20 (Electronically Signed)
[2022-01-07] MEDS: FAMOTIDINE 10 MG/ML inj 20 MG IVP (23:01)
[2022-01-07 23:06] LABS: C.Difficile POSITIVE (Negative)
--- NOTE | 2022-01-07 23:41 | ED.NURSE ---
Pt to and back from imaging via w/c. Pt up to BR x7 for BM.
[2022-01-08] VITALS (9 sets, daily range): BP systolic 132–157; BP diastolic 64–99; PULSE 70–83; RESP 14–20; TEMP 36.2–36.8; O2SAT 93–98; BMI 37.4
[2022-01-08] MEDS: VANCOMYCIN 125 MG CAPSULE PO ×5 (00:07→20:33)
--- NOTE | 2022-01-08 00:48 | ED.NURSE ---
Report given to MILAD Del Valle. COVID swab pending. Heads-up to HS by MILAD Del Valle.
--- NOTE | 2022-01-08 01:09 | P.IMHP_ITS ---
Hospitalist- H&P: HPI History of Present Illness Date Seen: 01/08/22 Chief complaint: Intense pain in upper ABD, Vomiting Narrative: Disha Reyes is a 61 year old female presents with 2 week history of on and off vomiting diarrhea and epigastric abdominal pain. See my dictation in the emergency department for details of history and physical. PFSH PFSH Medical History (Updated 01/08/22 @ 01:11 by Jos Wang MD) Anxiety Depression Gastroesophageal reflux History of electroconvulsive therapy Hyperlipidemia Hypothyroidism Obstructive sleep apnea PTSD (post-traumatic stress disorder) Surgical History (Updated 01/08/22 @ 01:04 by Jos Wang MD) History of cholecystectomy History of colonoscopy History of D&C History of hysterectomy History of repair of right rotator cuff History of total knee arthroplasty Hx of tonsillectomy Family History (Updated 01/08/22 @ 01:04 by Jos Wang MD) Mother Alzheimers disease Father Coronary artery disease Thyroid disease Social History (Updated 01/08/22 @ 01:06 by Jos Wang MD) Narrative: She presents with her . 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 She works at [employer]. She gets primary care at the [facility] in [place]. Code status is full. She does not smoke. She does not drink alcohol. No current recreational drug use Smoking Status: Never smoker Do you use any of these nicotine containing products: None Second hand tobacco smoke exposure: No How often do you have a drink containing alcohol: never How often do you have six or more drinks on one occasion: Never AUDIT-C Alcohol total score: 0 Non-prescribed substance use: denies use Meds Home Medications and Allergies Home Medications Medication Instructions Recorded Confirmed Type atorvastatin 20 mg tablet 20 mg PO HS 12/29/21 01/08/22 History clonazepam 0.5 mg tablet 0.5 mg PO HS 12/29/21 01/08/22 History gabapentin 300 mg capsule 300 mg PO TID 12/29/21 01/08/22 History hydroxyzine pamoate 50 mg capsule 50 mg PO Q6H PRN nausea and 12/29/21 01/08/22 History vomiting levothyroxine 100 mcg tablet 100 mcg PO DAILY 12/29/21 01/08/22 History sertraline 50 mg tablet 150 mg PO DAILY 12/29/21 01/08/22 History zolpidem 5 mg tablet 5 mg PO HS 12/29/21 01/08/22 History diclofenac sodium 1 % topical gel 4 g topical QID PRN 01/08/22 01/08/22 History propranolol 10 mg tablet 10 mg PO BID 01/08/22 01/08/22 History zolpidem 6.25 mg tablet,extended 6.25 mg PO HS 01/08/22 01/08/22 History release,multiphase Allergies Allergy/AdvReac Type Severity Reaction Status Date / Time methohexital Allergy Verified 01/07/22 23:46 demerol Allergy Uncoded 01/07/22 23:46 Exam Const: Vital Signs, click to edit/add: Vital Signs - 24 hr 01/07/22 20:13 01/07/22 20:40 01/07/22 20:51 Temperature 96.4 F L Pulse Rate 73 Pulse Rate [Left P ulse Oximeter] 79 Respiratory Rate 16 Blood Pressure [Ri ght Upper Arm] 139/109 H Pulse Oximetry 96 98 94 Oxygen Delivery Ms thod Room Air 01/07/22 20:00 01/07/22 20:13 01/07/22 20:30 Temperature 96.4 F L Pulse Rate Pulse Rate [Left P ulse Oximeter] 79 Respiratory Rate 16 Blood Pressure [Ri ght Upper Arm] 139/109 H 148/87 H 128/74 Pulse Oximetry [address] [facility] 01/08/22 00:15 01/08/22 00:58 Temperature 97.4 F L Pulse Rate Pulse Rate [Left P ulse Oximeter] 82 71 Respiratory Rate 14 18 Blood Pressure [Ri ght Upper Arm] 132/64 Pulse Oximetry [address] [facility] Hospitalist - H&P: Result Labs Labs: Short CBC 01/07/22 Range/Units 21:03 WBC 5.90 (4.50-11.00) K/uL Hgb 13.5 (12.0-16.0) gm/dL Hct 41.4 (33.0-51.0) % Plt Count 141 (140-440) K/uL BMP 01/07/22 21:03 Sodium 140 Potassium 3.6 Chloride 110 Carbon Dioxide 21 BUN 11 Creatinine 0.6 Glucose 111 Calcium 8.5 Cardiac Enzymes 01/07/22 Range/Units 21:03 Troponin I < 0.01 L (0.01-0.04) ng/mL Liver Function 01/07/22 Range/Units 21:03 Total Bilirubin 0.6 (0.1-1.5) mg/dL Direct Bilirubin 0.2 (0.0-0.5) mg/dL AST 310 H (12-35) U/L ALT 249 H (4-35) U/L Alkaline Phosphatase 111 (40-150) U/L Albumin 4.0 (3.3-5.0) g/dL Assessment and Plan Assessment and plan (1) C. difficile enteritis: Status: Acute (2) Acute hepatitis: Problem comment: Cause uncertain Status: Acute Plan Patient will be admitted to the hospital for IV fluids, oral vancomycin and monitoring and management of symptoms. Cause for elevated transaminases is uncertain. Will trend these and further evaluation would be warranted if increasing or otherwise symptomatic. Total time spent today is 75 minutes, 50 minutes in coordination of care and discussing with patient and other providers ongoing management of C diff enteritis
[2022-01-08 01:17] LABS: SARS PCR* POSITIVE SARS-CoV-2 (Negative)
--- NOTE | 2022-01-08 01:41 | ED.NURSE ---
Patient positive for LO. Long on-call tele-hospitalist called and notified of critical lab result. [facility] CN notified and states they are still able to admit the patient.
--- OUTSIDE RECORDS SUMMARY | 2022-01-08 01:58 | XMS_ITS ---
:1960 Author Organization [facility] - Primary Address [address] [place] [address] Care Team Providers Name Role Phone John Mckeon Unavailable Unavailable PROBLEMS Type Condition ICD9-CM Code BCL12-LI Code Onset Condition SNO MED Code Dates Status Problem Obstructive G47.33 Active 12073308 sleep apnea (adult) (pediatric) Problem Post-traumatic F43.12 Active 75416 003 stress disorder, chronic ALLERGIES Substance Reaction Event Type Date Status Demerol rash Drug Allergy Nov, Active ENCOUNTERS Encounter Location Date Diagnosis [facility] [address] Nov, Post-tra umatic stress [place], [place] disorder, chroni c F43.12 [id number] and Obstructive sleep apnea (adult) (p ediatric) G47.33 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 F43.12 [phone] and Obstructive sleep apnea (adult) (p ediatric) G47.33 IMMUNIZATIONS No Known Immunizations SOCIAL HISTORY Qualifiers Date Never Smoker REASON FOR REFERRAL FUNCTIONAL STATUS PLAN OF CARE Activity Details Follow Up 1 Year Reason: VITAL SIGNS Height 63 in 2018-12-29 Weight 239 lbs 2018-12-29 BMI 42.33 kg/m2 2018-12-29 Blood pressure systolic 130 mm Hg 2018-12-29 Blood pressure diastolic 88 mm Hg 2018-12-29 MEDICATIONS Medication Instructions Dosage Frequency Start End Duration Statu s Date Date prazosin 2 mg orally qd 1 cap(s) 24h Active gabapentin 300 orally 3 times 1 cap(s) 8h 30 day(s) Active mg a day Euthyrox 100 orally once a 1 tab(s) 24h 30 day(s) No t-Takin mcg (0.1 mg) day g Vistaril orally tid 1 cap(s) 8h Active pamoate 50 mg gabapentin 100 orally 3 times 1 cap(s) 8h 30 day(s) Active mg a day clonazePAM 0.5 orally qd 1 tab(s) 24h Active mg Vitamin D3 400 orally once a as directed 24h 30 day( s) Active intl units day sertraline 100 orally once a 1and 1/2 24h Ac tive mg day tab(s) risperiDONE 0.5 orally 2 times 1 tab(s) 12h 30 day(s ) Active mg a day atorvastatin 20 orally once a 1 tab(s) 24h 30 day(s) Active mg day eszopiclone 3 orally once a 1 tab(s) Not -Takin mg day (at g bedtime) PROCEDURES No Known procedures RESULTS No Results REASON FOR VISIT PTSD, Obstructive sleep apnea, Cannabis Recert Phone, PTSD, YUNI, PHONE cannabis recert, cannabis phone f.u, PTSD, Cannabis , PTSD, Panic disorder , Anxiety and depression Insurance Providers [facility] Health Member Patient Patient Patient Patient Patient Subscriber Subscriber Subscriber Group Insurance Plan Plan Plan Plan ID Relationship Address Phone Name Date of ID Name Date of No Type Insurance Insurance Insurance Coverage to Subscriber Address Phone Name Dates BCBS [phone] BCBS self Disha Hoffman [id number] [facility] [address]
--- OUTSIDE RECORDS SUMMARY | 2022-01-08 01:58 | XMS_ITS ---
:1960 Author Organization [facility] - Primary Address [address] [place] [address] Care Team Providers Name Role Phone John Mckeon Unavailable Unavailable PROBLEMS Type Condition ICD9-CM Code ECM98-WI Code Onset Condition SNO MED Code Dates Status Problem Obstructive G47.33 Active 40351356 sleep apnea (adult) (pediatric) Problem Post-traumatic F43.12 Active 71388 003 stress disorder, chronic ALLERGIES Substance Reaction Event Type Date Status Demerol rash Drug Allergy Nov, Active ENCOUNTERS Encounter Location Date Diagnosis [facility] [address] Nov, Post-tra umatic stress [place], [place] disorder, chroni c F43.12 [id number] and Obstructive sleep apnea (adult) (p ediatric) G47.33 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 BCBS self Disha Hoffman [id number] [employer] [id number] [facility] [address]
[2022-01-08] MEDS: LACTATED RINGERS 1000 ML 1,000 ML 125 ML IV ×3 (02:06→16:26)
[2022-01-08] MEDS: MELATONIN 3 MG TABLET PO (04:21)
--- NOTE | 2022-01-08 05:06 | PC.NURSE ---
PATIENT TO FLOOR AROUND 2, UP IND WITH STEADY GAIT, DECLINING NAUSEA STATING UPSET STOMACH, PAIN PRESENT IN ABDOMEN BUT DECLINING NEED FOR MEDICATION/INTERVENTION, LOOSE STOOLS NOTED, DRY COUGH PER PATIENT, TOLERATING WATER.
[2022-01-08] MEDS: ONDANSETRON 2 MG/ML inj 4 MG IVP ×2 (05:31→11:58)
[2022-01-08] MEDS: SERTRALINE 50 MG TABLET 150 MG PO (09:06)
[2022-01-08] MEDS: PROPRANOLOL 20 MG TABLET 10 MG PO ×2 (09:06→20:33)
[2022-01-08] MEDS: hydrOXYzine pamoate 25 MG CAPSULE 50 MG PO (09:07)
[2022-01-08] MEDS: GABAPENTIN 300 MG CAPSULE PO ×3 (09:08→20:34)
[2022-01-08 11:26] LABS: Eosinophils Percent Auto 0.6 % (0.0-7.0); Hematocrit 41.6 % (33.0-51.0); Hemoglobin* 13.6 gm/dL (12.0-16.0); Immature Granulocytes Abs Auto 0.01 K/uL (0.00-0.30); Lymphocytes Percent Auto 47.8 % (20-44); Mean Corpuscular HGB Conc 33 gm/dL (32-36); Mean Corpuscular Hemoglobin 29 pg (26-34); Mean Corpuscular Volume 90 fL (80-100); Monocytes Percent Auto 8.3 % (0.0-11.0); Platelet Count* 156 K/uL (140-440); RDW Coefficient of Variation % 12.8 % (11.5-15.5); Red Blood Count 4.64 m/uL (4.00-5.20); White Blood Count* 3.14 K/uL (4.50-11.00)
[2022-01-08 11:32] LABS: Slide Review Reflex No
[2022-01-08 11:37] LABS: Chloride* 110 mmol/L (96-114)
[2022-01-08 11:38] LABS: Potassium* 3.6 mmol/L (3.6-5.1); Sodium* 142 mmol/L (135-149)
[2022-01-08 11:40] LABS: Creatinine* 0.6 mg/dL (0.5-1.5); Est. Creatinine Clearance* 83.51; Estimated Glomerular Filt Rate 103 ml/min
[2022-01-08 11:41] LABS: Blood Urea Nitrogen* 8 mg/dL (7-30); Calcium* 9.2 mg/dL (8.4-10.6); Carbon Dioxide* 23 mmol/L (20-32); Glucose* 183 mg/dL (60-115)
[2022-01-08 11:47] LABS: Albumin* 4.3 g/dL (3.3-5.0)
[2022-01-08 11:49] LABS: Bilirubin Direct* 0.1 mg/dL (0.0-0.5); Bilirubin Total* 0.5 mg/dL (0.1-1.5); Total Protein* 6.8 g/dL (6.0-8.3)
[2022-01-08 11:50] LABS: Alanine Aminotransferase* 199 U/L (4-35); Alkaline Phosphatase* 107 U/L (40-150); Aspartate Amino Transferase* 145 U/L (12-35)
--- NOTE | 2022-01-08 11:55 | P.IMPN_ITS ---
Progress Note: A&P Assessment and plan (1) COVID-19 virus infection: Problem details: Uncertain how much of her symptoms is related to COVID and how much is related to C diff infection. Because she is somewhat high risk for complicated COVID I am going to initiate Paxilovid. Status: Acute (2) C. difficile enteritis: Problem details: Diarrhea and vomiting are modestly improved overnight. Continue oral vancomycin and IV fluids until able to tolerate p.o. Status: Acute (3) Acute hepatitis: Problem details: Cause uncertain. Trend. Status: Acute Plan Continue in hospital for management of COVID and C diff infections. Oral vancomycin, oral packs elevated, IV fluids, monitor for complications, especially hypoxia. Time Spent With Patient Total time spent: Total time spent today is 40 minutes, 25 minutes in coordination of care and discussing with patient and other providers management of COVID and C diff Subjective Date Seen: 01/08/22 Interval history: 61-year-old female seen in followup of a 2 week history of illness with waxing and waning symptoms. Last night she noted that 2 weeks ago she became ill with gastrointestinal illness, epigastric abdominal pain, vomiting and diarrhea as well as systemic symptoms of fatigue and malaise. She got better and then got worse again about 5 days ago. Symptoms are similar to what she had previously. She was found to have a positive test for C diff started on vancomycin. She was also found to have a positive COVID test last night. She has not had significant respiratory illness symptoms but does have profound fatigue and malaise as well as ongoing nausea and diarrhea. She has had very little to eat today and did have some diarrhea during the night but that seems a little better. She is not aware of any fever. She is not vaccinated for COVID. Exam Narrative: Exam Narrative: She is alert and appears in no distress. She is oriented to her circumstances. Respirations are clear to auscultation except for rare basilar crackle. Cardiovascular: S1, S2, regular rate and rhythm. No murmur gallop or rub. Abdomen: Bowel sounds are active. She has minimal epigastric tenderness. No mass. Extremities with trace edema. Const: Vital Signs, click to edit/add: Vital Signs - 24 hr 01/07/22 20:13 01/07/22 20:40 01/07/22 20:51 Temperature 96.4 F L Pulse Rate 73 Pulse Rate [Left P ulse Oximeter] 79 Pulse Rate [Left] Respiratory Rate 16 Blood Pressure [Le ft Arm] Blood Pressure [Ri ght Upper Arm] 139/109 H Pulse Oximetry 96 98 94 Oxygen Delivery Me thod Room Air 01/07/22 20:00 01/07/22 20:13 01/07/22 20:30 Temperature 96.4 F L Pulse Rate Pulse Rate [Left P ulse Oximeter] 79 Pulse Rate [Left] Respiratory Rate 16 Blood Pressure [Le ft Arm] Blood Pressure [Ri ght Upper Arm] 139/109 H 148/87 H 128/74 Pulse Oximetry 94 Oxygen Delivery Me thod Room Air 01/08/22 00:15 01/08/22 00:58 01/08/22 02:29 Temperature 97.4 F L Pulse Rate Pulse Rate [Left P ulse Oximeter] 82 71 Pulse Rate [Left] Respiratory Rate 14 18 18 Blood Pressure [Le ft Arm] Blood Pressure [Ri ght Upper Arm] 132/64 Pulse Oximetry 95 98 Oxygen Delivery Ms thod Room Air Room Air 01/08/22 02:32 01/08/22 07:00 01/08/22 07:00 Temperature 97.1 F L Pulse Rate Pulse Rate [Left P ulse Oximeter] Pulse Rate [Left] 83 70 81 Respiratory Rate 18 18 18 Blood Pressure [Le ft Arm] 134/83 150/93 H Blood Pressure [Ri ght Upper Arm] Pulse Oximetry 98 97 Oxygen Delivery Me thod Room Air Room Air 01/08/22 11:00 Temperature 97.3 F L Pulse Rate Pulse Rate [Left P ulse Oximeter] Pulse Rate [Left] 76 Respiratory Rate 18 Blood Pressure [Le ft Arm] 146/83 H Blood Pressure [Ri ght Upper Arm] Pulse Oximetry 95 Oxygen Delivery Me thod Room Air Documenting provider has reviewed patient's vital signs: yes Labs Labs: Laboratory Results - last 24 hr 01/07/22 01/07/22 01/07/22 21:03 21:03 21:03 WBC 5.90 RBC 4.60 Hgb 13.5 Hct 41.4 MCV 90 MCH 29 MCHC 33 RDW Coeff of Pranav 12.7 Plt Count 141 Neut % (Auto) 66.4 Lymph % (Auto) 26.1 Andrew % (Auto) 6.6 Eos % (Auto) 0.7 Baso % (Auto) 0.0 Neut # (Auto) 3.92 Lymph # (Auto) 1.54 Andrew # (Auto) 0.40 Eos # (Auto) 0.04 Baso # (Auto) 0.00 Abs Immat Gran (auto) 0.01 Sodium 140 Potassium 3.6 Chloride 110 Carbon Dioxide 21 BUN 11 Creatinine 0.6 Estimated Creat Clear 83.51 Estimated GFR 103 Glucose 111 Lactate 0.8 Calcium 8.5 Total Bilirubin 0.6 Direct Bilirubin 0.2 AST 310 H ALT 249 H Alkaline Phosphatase 111 Troponin I < 0.01 L C-Reactive Protein < 0.5 L Total Protein 6.5 Albumin 4.0 Lipase 133 Stl C.difficile Tox PCR St C. diff Tox Epid 027 SARS-CoV-2 (PCR) 01/07/22 01/08/22 01/08/22 21:48 00:42 11:16 WBC RBC Hgb Hct MCV MCH MCHC RDW Coeff of Pranav Plt Count Neut % (Auto) Lymph % (Auto) Andrew % (Auto) Eos % (Auto) Baso % (Auto) Neut # (Auto) Lymph # (Auto) Andrew # (Auto) Eos # (Auto) Baso # (Auto) Abs Immat Gran (auto) Sodium Potassium Chloride Carbon Dioxide BUN Creatinine Estimated Creat Clear Estimated GFR Glucose Lactate Calcium Total Bilirubin Direct Bilirubin AST ALT Alkaline Phosphatase Troponin I C-Reactive Protein Total Protein Albumin 4.3 Lipase Stl C.difficile Tox PCR POSITIVE A* St C. diff Tox Epid 027 PRESUMPTIVE NEGATIVE SARS-CoV-2 (PCR) POSITIVE SARS-CoV-2 A 01/08/22 01/08/22 11:16 11:16 WBC 3.14 L RBC 4.64 Hgb 13.6 Hct 41.6 MCV 90 MCH 29 MCHC 33 RDW Coeff of Pranav 12.8 Plt Count 156 Neut % (Auto) 43.0 Lymph % (Auto) 47.8 H Andrew % (Auto) 8.3 Eos % (Auto) 0.6 Baso % (Auto) 0.0 Neut # (Auto) 1.40 L Lymph # (Auto) 1.50 Andrew # (Auto) 0.30 Eos # (Auto) 0.00 Baso # (Auto) 0.00 Abs Immat Gran (auto) 0.01 Sodium 142 Potassium 3.6 Chloride 110 Carbon Dioxide 23 BUN 8 Creatinine 0.6 Estimated Creat Clear 83.51 Estimated GFR 103 Glucose 183 H Lactate Calcium 9.2 Total Bilirubin Direct Bilirubin AST ALT Alkaline Phosphatase Troponin I C-Reactive Protein Total Protein Albumin Lipase Stl C.difficile Tox PCR St C. diff Tox Epid 027 SARS-CoV-2 (PCR)
[2022-01-08] MEDS: ZOLPIDEM 5 MG TABLET PO (20:32)
[2022-01-08] MEDS: clonazePAM 0.5 MG TABLET PO (20:32)
[2022-01-08] MEDS: ATORVASTATIN 10 MG TABLET 20 MG PO (20:32)
[2022-01-09] MEDS: ACETAMINOPHEN 325 MG TABLET 650 MG PO (00:11)
[2022-01-09 02:56] VITALS: BP 139/68; PULSE 60; RESP 18; TEMP 36.6; O2SAT 96
--- NOTE | 2022-01-09 04:45 | PC.NURSE ---
[id number] Pt slept well during night, no BM this shift, denies N/V. C/O body aches relief with prn med. denies sob/difficulty breathing, lightheaded or dizziness. ind in room.
[2022-01-09] MEDS: OMEPRAZOLE 20 MG CAPSULE DR 40 MG PO (05:37)
[2022-01-09] MEDS: LEVOTHYROXINE 100 MCG TABLET PO (05:37)
[2022-01-09 07:00] VITALS: BP 143/75; PULSE 61; RESP 18; TEMP 36.1; O2SAT 93
[2022-01-09 07:58] LABS: Albumin* 3.9 g/dL (3.3-5.0); Chloride* 107 mmol/L (96-114); Sodium* 140 mmol/L (135-149)
[2022-01-09 07:59] LABS: Potassium* 3.7 mmol/L (3.6-5.1)
[2022-01-09 08:01] LABS: Aspartate Amino Transferase* 68 U/L (12-35); Bilirubin Total* 0.5 mg/dL (0.1-1.5); Carbon Dioxide* 25 mmol/L (20-32); Creatinine* 0.7 mg/dL (0.5-1.5); Est. Creatinine Clearance* 71.58; Estimated Glomerular Filt Rate 100 ml/min; Total Protein* 6.2 g/dL (6.0-8.3)
[2022-01-09 08:02] LABS: Alanine Aminotransferase* 105 U/L (4-35); Alkaline Phosphatase* 75 U/L (40-150); Blood Urea Nitrogen* 10 mg/dL (7-30); Calcium* 7.7 mg/dL (8.4-10.6); Glucose* 94 mg/dL (60-115)
[2022-01-09 08:05] LABS: C Reactive Protein* < 0.5 mg/dL (0.5-1.0)
[2022-01-09] MEDS: GABAPENTIN 300 MG CAPSULE PO (08:18)
[2022-01-09] MEDS: SERTRALINE 50 MG TABLET 150 MG PO (08:18)
[2022-01-09] MEDS: PROPRANOLOL 20 MG TABLET 10 MG PO (08:18)
[2022-01-09] MEDS: VANCOMYCIN 125 MG CAPSULE PO ×2 (08:18→12:26)
[2022-01-09 08:24] LABS: Basophils Percent Auto 0.2 % (0.0-3.0); Eosinophils Percent Auto 2.5 % (0.0-7.0); Hematocrit 38.9 % (33.0-51.0); Hemoglobin* 12.9 gm/dL (12.0-16.0); Lymphocytes Percent Auto 47.3 % (20-44); Mean Corpuscular HGB Conc 33 gm/dL (32-36); Mean Corpuscular Hemoglobin 30 pg (26-34); Mean Corpuscular Volume 90 fL (80-100); Platelet Count* 128 K/uL (140-440); RDW Coefficient of Variation % 12.8 % (11.5-15.5); Red Blood Count 4.32 m/uL (4.00-5.20)
[2022-01-09 08:55] LABS: Slide Review Reflex No
--- NOTE | 2022-01-09 09:37 | PM.DS1 ---
DS: Providers Provider Date Seen: 01/09/22 Date of admission: 01/08/22 01:49 Primary care physician: Joyce Dean DO Admitting Clinician: Jos Wang MD Attending Physician on discharge: Jos Wang MD Date of Discharge: 01/09/22 DS: Diagnosis Discharge Diagnosis (1) COVID-19 virus infection: Status: Acute (2) Gastroesophageal reflux: Status: Acute Problem details: Empiric treatment with omeprazole (3) C. difficile enteritis: Status: Acute Problem details: Clinically improving on oral vancomycin (4) Acute hepatitis: Status: Acute Problem details: Possibly due to COVID infection. Transaminases improving DS: Summary Hospital Course Hospital Course: 61-year-old female admitted through the emergency department with fluctuating course of fatigue, malaise, diarrhea, vomiting, abdominal pain. Symptoms initially began about 2 weeks prior to admission. She had some improvement and then got worse again. Evaluation at the time of admission showed that she had positive test for C diff toxin and a positive test for COVID-19. During hospital stay there was uncertainty as to which infection was the primary cause of her symptoms. She was treated with oral vancomycin and oral Paxlovid. Over 2 days in a hospital her symptoms markedly improved. Her diarrhea and vomiting have resolved. She has developed no significant respiratory illness. She does have a mild cough but no hypoxia. Status at Discharge Functional status at discharge: independent ambulation Overall status at discharge: patient is progressing back to baseline Time Spent with Patient Time attestation: Total time spent providing and/or coordinating discharge services: Time spent: Greater than 30 minutes Exam Narrative: Exam Narrative: She is alert and appears in no distress. Mood and affect are bright. She has had breakfast this morning without difficulties. Respirations are clear to auscultation. Cardiovascular: S1, S2, regular rate and rhythm. No murmur gallop or rub. Abdomen is soft without tenderness or mass. Minimal epigastric tenderness has resolved. No significant edema. Const: Vital Signs, click to edit/add: Vital Signs - 24 hr 01/08/22 11:00 01/08/22 15:00 01/08/22 15:00 Temperature 97.3 F L 97.5 F L Pulse Rate [Left] 76 73 73 Respiratory Rate 18 18 18 Blood Pressure [Le ft Arm] 146/83 H 135/75 Pulse Oximetry 95 93 Oxygen Delivery Me thod Room Air Room Air 01/08/22 19:00 01/08/22 23:00 01/08/22 23:00 Temperature 98.3 F 97.5 F L Pulse Rate [Left] 74 80 80 Respiratory Rate 18 18 20 Blood Pressure [Le ft Arm] 157/82 H 149/99 H Pulse Oximetry 93 97 Oxygen Delivery Me thod Room Air Room Air 01/09/22 02:56 01/09/22 07:00 01/09/22 07:00 Temperature 97.8 F 97.0 F L Pulse Rate [Left] 60 61 61 Respiratory Rate 18 18 Blood Pressure [Le ft Arm] 139/68 143/75 H Pulse Oximetry 96 93 Oxygen Delivery Me thod Room Air Room Air Documenting provider has reviewed patient's vital signs: yes DS: Data Data Completed and Pending Labs on day of discharge: Labs from last 24 hours 01/09/22 01/09/22 01/08/22 07:22 07:22 11:16 WBC 4.40 L RBC 4.32 Hgb 12.9 Hct 38.9 MCV 90 MCH 30 MCHC 33 RDW Coeff of Pranav 12.8 Plt Count 128 L Neut % (Auto) 40.0 L Lymph % (Auto) 47.3 H [place] % (Auto) 10.0 Eos % (Auto) 2.5 Baso % (Auto) 0.2 Neut # (Auto) 1.80 Lymph # (Auto) 2.10 [place] # (Auto) 0.40 Eos # (Auto) 0.10 Baso # (Auto) 0.00 Abs Immat Gran (auto) 0.00 Sodium 140 142 Potassium 3.7 3.6 Chloride 107 110 Carbon Dioxide 25 23 BUN 10 8 Creatinine 0.7 0.6 Estimated Creat Clear 71.58 83.51 Estimated GFR 100 103 Glucose 94 183 H Calcium 7.7 L 9.2 Total Bilirubin 0.5 Direct Bilirubin 0.0 AST 68 H ALT 105 H Alkaline Phosphatase 75 C-Reactive Protein < 0.5 L Total Protein 6.2 Albumin 3.9 01/08/22 01/08/22 11:16 11:16 WBC 3.14 L RBC 4.64 Hgb 13.6 Hct 41.6 MCV 90 MCH 29 MCHC 33 RDW Coeff of Pranav 12.8 Plt Count 156 Neut % (Auto) 43.0 Lymph % (Auto) 47.8 H [place] % (Auto) 8.3 Eos % (Auto) 0.6 Baso % (Auto) 0.0 Neut # (Auto) 1.40 L Lymph # (Auto) 1.50 [place] # (Auto) 0.30 Eos # (Auto) 0.00 Baso # (Auto) 0.00 Abs Immat Gran (auto) 0.01 Sodium Potassium Chloride Carbon Dioxide BUN Creatinine Estimated Creat Clear Estimated GFR Glucose Calcium Total Bilirubin 0.5 Direct Bilirubin 0.1 AST 145 H ALT 199 H Alkaline Phosphatase 107 C-Reactive Protein Total Protein 6.8 Albumin 4.3 Discharge Plan Discharge Disposition: Home, Self-Care Date of Admission: 01/08/22 01:49 Primary Care Provider: Joyce Dean Condition: Improved Anticipated Discharge Date/Time: 01/09/22 09:43 Discharge Medications: New nirmatrelvir-ritonavir 300 mg (150 mg x 2)-100 mg tablets,dose pack 2 ea PO BID 4 Days Qty: 16 0RF Rx Instructions: Take nirmatrelvir 150 mg 2 tabs twice daily and ritonavir 100 mg twice daily for four more days omeprazole 20 mg capsule,delayed release(DR/EC) 20 mg PO DAILY PRNQty: 30 0RF vancomycin 125 mg Capsule 125 mg PO QID Qty: 40 0RF Continued atorvastatin 20 mg tablet 20 mg PO HS clonazepam 0.5 mg tablet 0.5 mg PO HS Label Comments: TAKE 1 TABLET BY MOUTH ONCE DAILY hydroxyzine pamoate 50 mg capsule 50 mg PO Q6H PRN (Reason: nausea and vomiting ) levothyroxine 100 mcg tablet 100 mcg PO DAILY gabapentin 300 mg capsule 300 mg PO TID Label Comments: TAKE 1 CAPSULE BY MOUTH THREE TIMES DAILY diclofenac sodium 1 % gel 4 g TOPICAL QID PRN propranolol 10 mg tablet 10 mg PO BID Label Comments: TAKE 1 TABLET BY MOUTH IN THE MORNING AND 1 IN THE EVENING zolpidem 6.25 mg tablet,ext release multiphase 6.25 mg PO HS sertraline 100 mg tablet 150 mg PO DAILY Discontinued zolpidem 5 mg tablet 5 mg PO HS Label Comments: TAKE 1 TABLET BY MOUTH AT BEDTIME NEEDED FOR SLEEP Discharge Orders: Discharge Order (Routine); Ordered 01/09/22 Ordered By: Jos Wang Additional Instructions: See your doctor in 1 week. At that time he will need to have blood tests including CBC and liver enzymes. Both COVID and C diff infections can get worse again. See your doctor if your symptoms are returning. Activity Level: No Restrictions Discharge Diet: Regular Follow Up Appointments: Joyce Dean DO [Primary Care Provider] - (Follow-up in 1 week.) Forms: [employer] Info Instructions
--- NOTE | 2022-01-09 09:47 | PC.NURSE ---
Pt verbalized, i'm feeling much better today. Ordered Omelet for breakfast and tolerated well. up independent in room. Saline locked.
[2022-01-09 11:00] VITALS: BP 140/96; PULSE 65; RESP 16; TEMP 36.4; O2SAT 93
--- NOTE | 2022-01-09 12:27 | PC.NURSE ---
IV removed, d/c instructions reviewed with patient. Pharmacy called to make label for paxlovid. Pt verbalized understanding of d/c instructions.
--- NOTE | 2022-01-09 13:14 | PC.NURSE ---
DISCHARGED FROM M/S AT 1230. PT AMBULATED OFF UNIT WITH RELIGION DEPARTMENT CHAIR AND PRESENT FOR TRANSPORT HOME.
== END 2022-01-09 12:30 | disposition home or self-care (01) | DRG 371 ==
LOC: ED 01-08 00:26 → MEDSURG 01-09 09:43
PROVIDERS: Family Medicine; Admitting Provider Family Medicine; Emergency Provider Family Medicine; PCP Family Medicine; Visit Provider Family Medicine
DX: A04.72 Enterocolitis due to Clostridium difficile, not specified as recurrent (principal); U07.1 COVID-19; B17.9 Acute viral hepatitis, unspecified; G47.33 Obstructive sleep apnea (adult) (pediatric); N28.1 Cyst of kidney, acquired; K21.9 Gastro-esophageal reflux disease without esophagitis; F41.9 Anxiety disorder, unspecified; F32.A Depression, unspecified; E78.5 Hyperlipidemia, unspecified; E03.9 Hypothyroidism, unspecified; F43.10 Post-traumatic stress disorder, unspecified; G47.00 Insomnia, unspecified; E66.9 Obesity, unspecified; Z90.49 Acquired absence of other specified parts of digestive tract; Z90.710 Acquired absence of both cervix and uterus; Z68.38 Body mass index [BMI] 38.0-38.9, adult
CPT/HCPCS: 36415; 74177; 80048; 80076; 83605; 83690; 84484; 85025; 86140; 87493; 87635; 93005; 94761; 96361; 96374; 96375; 96376; 99285; A9270; G0378; J2405; J7030; J7120; Q9967; S0028

== ENCOUNTER 2022-05-15 07:29 | Outpatient (CLI) | payer OTHER, SELFPAY ==
--- OUTSIDE RECORDS SUMMARY | 2022-05-15 07:35 | XMS_ITS ---
:1960 Author Organization [facility] - Primary Address [address] [place] [address] Care Team Providers Name Role Phone John Mckeon Unavailable Unavailable PROBLEMS Type Condition ICD9-CM Code VUW11-CA Code Onset Condition SNO MED Code Dates Status Problem Obstructive G47.33 Active [id number] sleep apnea (adult) (pediatric) Problem Post-traumatic F43.12 Active 29675 003 stress disorder, chronic ALLERGIES Substance Reaction Event Type Date Status Demerol rash Drug Allergy Nov, Active ENCOUNTERS Encounter Location Date Diagnosis [facility] [address] Nov, Post-tra umatic stress [place], [place] disorder, chroni c F43.12 [id number] and Obstructive sleep apnea (adult) (p ediatric) G47.33 [facility] 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 BCBS self Disha Hoffman [id number] [facility] [id number]
--- NOTE | 2022-05-15 08:00 | CRLHL7_ITS ---
For Patients: As a result of the Century Cures Act, medical imaging exams and procedure reports are released immediately into your electronic medical record. You may view this report before your referring provider. If you have questions, please contact your health care provider. INDICATION: Painful right knee arthroplasty. Exam is being performed to assess for loosening at the tibial component. History of anterior right knee pain. TECHNIQUE: 25.9 millicuries of technetium-99m labeled MDP has been given intravenously. Three-phase bone scan of the bilateral knees has been performed. FINDINGS: Mild asymmetric increased blood flow to the lateral superior right knee is identified. Focus of increased soft tissue/blood pool uptake is identified in the lateral superior right knee. Delayed imaging demonstrates a focus of increased uptake of the radiotracer associated with the superior lateral condylar component of the distal femur at the right knee. There is mild to moderate increased activity along the metaphysis of the tibia plateau of the proximal tibia. Photopenic midline tibial component is noted. This demonstrates no significant peripheral increased activity surrounding the tibial component. There is increased activity in the medial left knee consistent with degenerative change. IMPRESSION: 1. Positive 3 phase bone scan to the upper lateral right knee adjacent to the femoral component of the right knee arthroplasty superiorly. 2. There is mildly increased activity along the tibia plateau of the right tibia on delayed imaging only. No focal increased activity associated with the tibial component of the arthroplasty is seen which would be a typical pattern of loosening. However the increased activity would raise a question of early loosening. 3. Increased activity in the medial compartment of the left knee is identified consistent with degenerative change. Dictated by Troy Hayens MD @ 05/15/2022 2:09:28 PM (Electronically Signed)
== END 2022-05-15 07:30 | disposition home or self-care (01) ==
LOC: NM 07:32
PROVIDERS: PCP Family Medicine; Visit Provider Orthopaedic Surgery
DX: Z96.651 Presence of right artificial knee joint (principal); T84.032A Mechanical loosening of internal right knee prosthetic joint, initial encounter
CPT/HCPCS: 78315; A9503

== ENCOUNTER 2022-09-06 09:15 | Inpatient (IN) | payer OTHER, SELFPAY ==
[2022-09-01 17:25] VITALS: BP 130/93; PULSE 53; RESP 16; TEMP 35.9; O2SAT 97
[2022-09-06] VITALS (24 sets, daily range): BP systolic 104–141; BP diastolic 55–107; PULSE 51–72; RESP 16–18; TEMP 35.9–36.7; O2SAT 92–100; BMI 37.3
[2022-09-06] MEDS: LACTATED RINGERS 1000 ML 1,000 ML 100 ML IV ×2 (08:25→16:02)
[2022-09-06] MEDS: ACETAMINOPHEN 500 MG TABLET 1000 MG PO ×3 (09:37→23:49)
[2022-09-06] MEDS: CELECOXIB 200 MG CAPSULE PO (09:37)
[2022-09-06] MEDS: OXYCODONE (CR) 10 MG TAB.ER.12H PO (09:38)
[2022-09-06] MEDS: SODIUM CHLORIDE 0.9 % (FLUSH) 10 ML SYRINGE IVF (10:11)
[2022-09-06] MEDS: fentaNYL 100 MCG/2 ML inj IVP (11:34)
[2022-09-06] MEDS: MIDAZOLAM HCL 1 MG/ML inj IVP (11:34)
--- NOTE | 2022-09-06 11:34 | SUR.PREOP ---
TIME?OUT:? 1134 PT/RN/MDA?VERIFICATION?OF?SURGICAL?SITE,?PROCEDURE,?AND?CONSENT OBTAINED?PRIOR?TO?INVASIVE?PROCEDURE.
--- NOTE | 2022-09-06 12:15 | W.PM.NB ---
Nerve Block Nerve Block Time Seen by Provider: 11:37 Date Seen: 09/06/22 Type of block requested by surgeon for post-operative analgesia: adductor canal Side: right Time out performed: Yes Verification of patient name: Yes Verification of date of : Yes Site marking: site marked Name of person performing procedure: Navi Continuous monitoring Was continuous monitoring of O2 sat, B/P, radiographer cardiac catheterization, recorded every 15 minutes?: Yes Procedure Checklist: sterile prep, needles and gloves Ultrasound guided. Images saved: Yes Medications given in 5ml increments after negative aspiration: Ropivicaine %: 0.5 mL: 20 Needle gauge: 20 Decadron (mg): 10 Precedex (mcg): 25 Patient tolerated procedure well: Yes Additional comments: Needle noted adjacent to nerve Block Charges Block Charge (with Pro Fee): Femoral Nerve Use of Ultrasound Machine for Block: Yes- US Guidance/pain block
--- NOTE | 2022-09-06 12:15 | W.PM.NB ---
Nerve Block Nerve Block Time Seen by Provider: 11:37 Date Seen: 09/06/22 Type of block requested by surgeon for post-operative analgesia: geniculars Side: right Time out performed: Yes Verification of patient name: Yes Verification of date of : Yes Site marking: site marked Name of person performing procedure: Navi Continuous monitoring Was continuous monitoring of O2 sat, B/P, monitoring analyst, recorded every 15 minutes?: Yes Procedure Checklist: sterile prep, needles and gloves Medications given in 5ml increments after negative aspiration: Ropivicaine %: 0.5 mL: 9 Needle gauge: 25 Patient tolerated procedure well: Yes Block Charges Block Charge (with Pro Fee): Genicular Nerve Block Use of Ultrasound Machine for Block: No
--- NOTE | 2022-09-06 12:16 | W.ANESCHARGE ---
Anesthesia Charges Start Date/Time Anesthesia Start Date: 09/06/22 Anesthesia Start Time: 13:01 Stop Date/Time Anesthesia Stop Date: 09/06/22 Anesthesia Stop Time: 16:33
[2022-09-06] MEDS: CEFAZOLIN 2 GM INJ IVP (13:15)
[2022-09-06] MEDS: TRANEXAMIC ACID 100 MG/ML INJ 1000 MG IV (13:17)
--- NOTE | 2022-09-06 15:36 | CRLHL7_ITS ---
For Patients: As a result of the Century Cures Act, medical imaging exams and procedure reports are released immediately into your electronic medical record. You may view this report before your referring provider. If you have questions, please contact your health care provider. INDICATION: Follow up knee arthroplasty. TECHNIQUE: Two views of the right knee. FINDINGS: Right knee arthroplasty. The components are adequately aligned and well seated. Air within the soft tissues and joint space related to the surgery. IMPRESSION: Right total knee arthroplasty. The components are adequately aligned and well seated. Dictated by Last Whitehead MD @ 09/07/2022 9:20:59 AM (Electronically Signed)
--- NOTE | 2022-09-06 15:39 | P.ORPRC_ITS ---
Procedure Note Date of procedure: 09/06/22 Procedure: PREOPERATIVE DIAGNOSIS: Aseptic loosening Right total knee arthroplasty POSTOPERATIVE DIAGNOSIS: Aseptic loosening Right total knee arthroplasty NAME OF OPERATION: Revision Right total knee arthroplasty SURGEON: Sathish Key MD PRODUCT DEVELOPMENT ASSISTANT: Mckayla Fountain PA-C, LUDWIN Lorenzo ANESTHESIA: Spinal ESTIMATED BLOOD LOSS: 0 mL COMPLICATIONS: None SPECIMENS: None DRAINS: None PREOPERATIVE ANTIBIOTICS: Ancef 2 grams, antibiotic impregnated cement IMPLANTS: 1. J&J Attune revision CRS #6 posterior stabilized femur, 4 mm posterior augment on the medial side, 30 mm sleeve, 14 mm x 60 mm stem 2. #4 rotating platform tibia, 37 mm sleeve, 12 mm x 60 mm stem 3. #6 posterior stabilized, 10 mm rotating platform polyethylene INDICATIONS: The patient is a 62-year-old who previously underwent total knee arthroplasty. The knee is painful and determined to be loose. Revision total knee arthroplasty was offered. The risks, benefits and expected outcomes were discussed in detail. These included but were not limited to: Infection, bleeding, injury to blood vessel or nerve, venous thromboembolism. All questions were answered to their satisfaction. Use of an physician assistant psychiatry was necessary throughout the case for patient positioning and safety, soft tissue retraction, and closure. PROCEDURE: Spinal anesthesia was administered. The patient was placed supine on the operating table. The physician assistant psychiatry made sure the patient was positioned appr opriately. The lower extremity was prepped and draped in the usual sterile fashion. The limb was exsanguinated with the Mehdi bandage. The pneumatic tourniquet was inflated to 300 mmHg. The previously placed standard anterior incision was utilized with the knee in flexion. Subcutaneous dissection was sharply taken to the extensor mechanism. Full-thickness medial and lateral flaps were elevated. The physician assistant psychiatry retracted the soft tissues and protected them throughout the case. A standard medial parapatellar approach was made. The patella was everted. Scar was sharply debrided. The poly was removed. The oscillating saw with the ACL blade was used to free up the femoral component at the anterior, posterior and chamfer cuts both medially and laterally. The femoral component was tapped off with a tamp. Attention then turned to the tibial component. Again the saw and flexible osteotomes were used to free up the implant medially, anteriorly and laterally. The extractor was then placed on the tibial component and it was tapped out of the bone freeing it up at cement prosthesis interface. Most of the cement was still well bonded to the bone. It was removed with an osteotome, rongeur and curettes. The tibial canal was reamed on power to 13 mm. This had excellent chatter. We then broached to 37 mm. This had excellent rotational stability. We freshened up the tibial cut on top of the broach. The broach was removed. The tibial trial was placed and seated on the proximal tibia, the punch was used. Attention then turned to the femur. The femoral canal was reestablished with the Adson rongeur and osteotome. The femoral canal was reamed to 15 mm. The 30 mm broach was used and had excellent rotational stability and press-Fit. The distal femoral cutting jig was secured to the broach. Rotation was set parallel to the trans epicondylar axis. The saw was used to freshen up the distal cut, removing 2 mm. The anterior, posterior and posterior chamfer cuts were freshened up. A 4 mm posterior augment was needed on the medial side. The boxed cutting jig was placed and the box cuts were made. The broach was removed, the trial femoral component was placed and was an excellent fit. The patella remains well placed and well-fixed. A trial polyethylene was placed. The knee was nicely balanced in both flexion and extension. Trial components were removed, cancellous surfaces were irrigated with pulse lavage, then thoroughly dried, by the physician assistant psychiatry. Components were assembled on the back table. We cemented the tibial component, then the femoral component. We placed the 10 mm trial polyethylene. The knee was brought into full extension. Excessive cement was removed. The cement was allowed to harden. We then placed the 10 mm rotating platform polyethylene. The knee was taken through a range of motion and was found to be nicely balanced in both flexion and extension. The patella tracks centrally. The physician assistant psychiatry did a three minute dilute Betadine solution soak. The physician assistant psychiatry irrigated the wound with 3 liters of normal saline via pulse lavage. The physician assistant psychiatry reapproximated the extensor mechanism with #1 Vicryl in an interrupted [id number] fashion. The physician assistant psychiatry then ran the extensor mechanism with a #1 PDO Stratafix. The physician assistant psychiatry closed the subcutaneous tissues with a 3-0 Stratafix and the skin with a running 3-0 Stratafix in a subcuticular fashion. Glue was used to seal the skin. The physician assistant psychiatry placed a dry dressing, SUE stocking, and Polar Care. Sponge and needle counts were correct x2. The patient tolerated the procedure well. There were no apparent complications. They were carefully transferred to the hospital bed and taken to the postanesthesia care unit in satisfactory condition. PLAN: The patient will be mobilized with physical therapy. Aspirin will be used for DVT prophylaxis. They will be discharged to home once medically appropriate.
--- NOTE | 2022-09-06 16:35 | W.ANESCHARGE ---
Anesthesia Charges Start Date/Time Anesthesia Start Date: 09/06/22 Anesthesia Start Time: 13:01 Stop Date/Time Anesthesia Stop Date: 09/06/22 Anesthesia Stop Time: 16:33
[2022-09-06] MEDS: fentaNYL 100 MCG/2 ML inj 50 MCG IVP ×2 (16:55→17:05)
[2022-09-06] MEDS: OXYCODONE 5 MG TABLET PO ×3 (19:06→23:49)
--- NOTE | 2022-09-06 19:50 | P.IMCN_ITS ---
Date of Consult Patient: Isiah Patient Consult date: 09/06/22 Requesting Physician: Orthopedics Primary Care Provider: Joyce Dean, Consult Narrative Reason for consult: Postop care YUNI, GERD, anxiety, depression Narrative: Disha Reyes is a 62 year old woman status post right total knee arthroplasty about 2 years ago who subsequently developed complications with increased pain suspected to be on the basis hardware malfunction and loosening. Presents today for an elective revision of the right total knee arthroplasty. This is undertaken successfully without any apparent complications. Indicates she feels well. Review of Systems Status of ROS: Reports: 10 or more systems reviewed and unremarkable except as noted in History and below Narrative: Denies angina, anginal equivalent, syncope, near syncope, nausea, vomiting, p alpitations, diaphoresis, dyspnea at rest, paroxysmal nocturnal dyspnea, orthopnea, edema, claudication. Denies abdominal pain, diarrhea, or constipation. Denies any recent trauma, injury, or travel. No blood loss. Denies fevers, rigors, diaphoresis. No focal motor neurologic deficits. [facility] Medical History (Updated 09/06/22 @ 19:59 by Giacomo Isbell MD) C. difficile enteritis ?A04.72 - Enterocolitis due to Clostridium difficile, not specified as recurrent (ICD-10) Post-traumatic stress disorder, chronic ?F43.12 - Post-traumatic stress disorder, chronic (ICD-10) Anxiety (08/24/20) ?F41.9 - Anxiety disorder, unspecified (ICD-10) Seasonal affective disorder (11/27/13) ?F33.8 - Other recurrent depressive disorders (ICD-10) Presbyopia of both eyes (01/09/10) ?H52.4 - Presbyopia (ICD-10) Moderate episode of recurrent major depressive disorder ?F33.1 - Major depressive disorder, recurrent, moderate (ICD-10) Acquired hypothyroidism (06/07/17) ?E03.9 - Hypothyroidism, unspecified (ICD-10) COVID-19 virus infection ?U07.1 - COVID-19 (ICD-10) History of electroconvulsive therapy ?Z98.890 - Other specified postprocedural states (ICD-10) Hypothyroidism ?E03.9 - Hypothyroidism, unspecified (ICD-10) Hyperlipidemia ?E78.5 - Hyperlipidemia, unspecified (ICD-10) Gastroesophageal reflux ?K21.9 - Gastro-esophageal reflux disease without esophagitis (ICD-10) Obstructive sleep apnea ?G47.33 - Obstructive sleep apnea (adult) (pediatric) (ICD-10) Anxiety ?F41.9 - Anxiety disorder, unspecified (ICD-10) Depression ?F32.A - Depression, unspecified (ICD-10) Surgical History (Updated 09/06/22 @ 19:58 by Giacomo Isbell MD) Status post right knee replacement (2019) ?Z96.651 - Presence of right artificial knee joint (ICD-10) History of hysterectomy ?Z90.710 - Acquired absence of both cervix and uterus (ICD-10) Status post shoulder surgery (2010) ?Z98.890 - Other specified postprocedural states (ICD-10) Status post total right knee replacement (11/10/19) ?Z96.651 - Presence of right artificial knee joint (ICD-10) Hx of tonsillectomy ?Z90.89 - Acquired absence of other organs (ICD-10) History of repair of right rotator cuff (03/31/13) ?Z98.890 - Other specified postprocedural states (ICD-10) History of hysterectomy ?Z90.710 - Acquired absence of both cervix and uterus (ICD-10) History of D&C ?Z98.890 - Other specified postprocedural states (ICD-10) History of colonoscopy ?Z98.890 - Other specified postprocedural states (ICD-10) History of cholecystectomy ?Z90.49 - Acquired absence of other specified parts of digestive tract (ICD- 10) Family History Mother Alzheimers disease Father Coronary artery disease Thyroid disease Sister Lupus Social History Narrative: She presents with her . 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 She works at [email or web address]. She gets primary care at the [facility] in [place]. Code status is full. She does not smoke. She does not drink alcohol. No current recreational drug use Highest level of school completed/degree received: high school graduate Smoking Status: Never smoker Do you use any of these nicotine containing products: None Second hand tobacco smoke exposure: No How often do you have a drink containing alcohol: never How often do you have six or more drinks on one occasion: Never AUDIT-C Alcohol total score: 0 Non-prescribed substance use: denies use Caffeine: Yes (Coffee occ) service: No Meds Home Medications and Allergies Home Medications Medication Instructions Recorded Confirmed Type atorvastatin 20 mg tablet 20 mg PO HS 12/29/21 09/06/22 History gabapentin 300 mg capsule 300 mg PO TID 12/29/21 09/06/22 History hydroxyzine pamoate 50 mg capsule 50 mg PO Q6H PRN nausea and 12/29/21 09/06/22 History vomiting levothyroxine 100 mcg tablet 100 mcg PO DAILY 12/29/21 09/06/22 History propranolol 10 mg tablet 10 mg PO BID 01/08/22 09/06/22 History sertraline 100 mg tablet 150 mg PO DAILY 01/08/22 09/06/22 History zolpidem 6.25 mg tablet,extended 6.25 mg PO HS 01/08/22 09/06/22 History release,multiphase ascorbic acid (vitamin C) 1,000 mg 1 g PO DAILY 08/31/22 09/06/22 History tablet aspirin 81 mg tablet,delayed 81 mg PO DAILY 08/31/22 09/06/22 History release cholecalciferol (vitamin D3) 50 50 mcg PO DAILY 08/31/22 09/06/22 History mcg (2,000 unit) tablet Allergies Allergy/AdvReac Type Severity Reaction Status Date / Time meperidine [From Demerol] Allergy Verified 09/06/22 09:29 methohexital Allergy Verified 09/06/22 09:29 Exam Narrative: Exam Narrative: Appears comfortable and in no acute distress. Vision and hearing are grossly normal. Alert, oriented to self, place, time, situation. Friendly, cooperative, articulate. Mood and affect are congruent. Neck is supple. Midline trachea. No head or neck lymphadenopathy. Lungs clear to auscultation without wheezing, rhonchi, or rales. Chest wall excursions are full. Heart tones with regular rhythm, normal S1-S2, without murmur, gallop, or rub. Abdomen with active bowel sounds, soft, nontender. Obese. Const: Vital Signs, click to edit/add: Vital Signs - 24 hr 09/06/22 11:34 09/06/22 11:40 09/06/22 12:00 Temperature Pulse Rate 57 L 62 64 Pulse Rate [Right Pulse Oximeter] Respiratory Rate 16 16 16 Blood Pressure 140/77 H 125/67 123/57 L Blood Pressure [Le ft Arm] Pulse Oximetry 100 99 99 Oxygen Delivery Me thod Nasal Cannula Nasal Cannula Nasal Cannula Oxygen Flow Rate 2 2 2 09/06/22 16:30 09/06/22 16:35 09/06/22 16:40 Temperature 97 F L Pulse Rate 60 60 51 L Pulse Rate [Right Pulse Oximeter] Respiratory Rate 16 16 16 Blood Pressure 112/55 L 104/63 106/66 Blood Pressure [Le ft Arm] Pulse Oximetry 94 96 92 Oxygen Delivery Me thod Room Air Non Rebreather Mas k Non Rebreather Mas k Oxygen Flow Rate 6 6 09/06/22 16:45 09/06/22 16:50 09/06/22 16:55 Temperature Pulse Rate 51 L 58 L 56 L Pulse Rate [Right Pulse Oximeter] Respiratory Rate 16 16 16 Blood Pressure 124/73 121/100 H 131/69 Blood Pressure [Le ft Arm] Pulse Oximetry 100 95 95 Oxygen Delivery Me thod Non Rebreather Mas k Room Air Room Air Oxygen Flow Rate 6 09/06/22 17:00 09/06/22 17:05 09/06/22 17:10 Temperature 97 F L Pulse Rate 56 L 57 L 54 L Pulse Rate [Right Pulse Oximeter] Respiratory Rate 16 16 16 Blood Pressure 132/72 141/75 H 134/68 Blood Pressure [Le ft Arm] Pulse Oximetry 94 98 97 Oxygen Delivery Me thod Room Air Room Air Room Air Oxygen Flow Rate 09/06/22 17:15 09/06/22 17:25 09/06/22 17:30 Temperature 96.6 F L Pulse Rate 55 L 53 L Pulse Rate [Right Pulse Oximeter] 51 L Respiratory Rate 16 16 16 Blood Pressure 133/77 Blood Pressure [Le ft Arm] 130/93 H 139/81 Pulse Oximetry 96 93 Oxygen Delivery Me thod Room Air Room Air Room Air Oxygen Flow Rate 09/06/22 17:45 09/06/22 18:00 09/06/22 18:15 Temperature Pulse Rate Pulse Rate [Right Pulse Oximeter] 55 L 58 L 55 L Respiratory Rate 16 16 16 Blood Pressure Blood Pressure [Le ft Arm] 135/71 135/66 138/74 Pulse Oximetry 93 93 93 Oxygen Delivery Me thod Room Air Room Air Room Air Oxygen Flow Rate 09/06/22 18:45 Temperature 97.1 F L Pulse Rate Pulse Rate [Right Pulse Oximeter] 72 Respiratory Rate 16 Blood Pressure Blood Pressure [Le ft Arm] 119/107 H Pulse Oximetry 95 Oxygen Delivery Me thod Room Air Oxygen Flow Rate Assessment and Plan Assessment and plan (1) Right knee pain: Status: Acute (2) Loose right total knee arthroplasty: Status: Acute (3) Status post revision of total replacement of right knee: Problem comment: 09/06/2022 Status: Acute (4) Back pain: Status: Acute (5) Status post total right knee replacement: Problem comment: Dr. Key Status: Acute (6) Gastroesophageal reflux: Problem comment: Empiric treatment with omeprazole Status: Acute (7) Obstructive sleep apnea: Status: Acute (8) Anxiety: Status: Acute (9) Depression: Status: Acute Plan 1. Reviewed impression with patient and her . Answered their questions. 2. Agree with perioperative antibiotic IV 8 prophylaxis. 3. Agree with postoperative venous thromboembolism prophylaxis. 4. Will add proton pump inhibitor to her regimen. 5. Continue with other supportive medication efforts. 6. Continue with CPAP. 7. I completed her med rec for discharge from the hospital, and I included 14 day prescription for omeprazole 20 mg once daily.
[2022-09-06] MEDS: CEFAZOLIN 2 GM in 0.9 % SODIUM CHLORIDE Mini-bag 100 ML IVPB (20:01)
[2022-09-06] MEDS: PANTOPRAZOLE SODIUM 40 MG INJ IVP (20:03)
[2022-09-06] MEDS: ATORVASTATIN 10 MG TABLET 20 MG PO (20:47)
[2022-09-06] MEDS: ASPIRIN 81 MG TABLET EC PO (20:48)
[2022-09-06] MEDS: SENNOSIDES 1 TAB TABLET 2 TAB PO (20:49)
[2022-09-06] MEDS: ZOLPIDEM 5 MG TABLET PO (20:49)
[2022-09-06] MEDS: GABAPENTIN 300 MG CAPSULE PO (20:49)
[2022-09-06] MEDS: PROPRANOLOL 20 MG TABLET 10 MG PO (20:50)
[2022-09-07] VITALS: BP 115/56; PULSE 76; RESP 16; TEMP 36.6; O2SAT 98
[2022-09-07 01:00] VITALS: BP 112/54; PULSE 75; RESP 16; TEMP 36.6; O2SAT 99
[2022-09-07] MEDS: LACTATED RINGERS 1000 ML 1,000 ML 75 ML IV (03:20)
[2022-09-07] MEDS: CEFAZOLIN 2 GM in 0.9 % SODIUM CHLORIDE Mini-bag 100 ML IVPB (03:21)
[2022-09-07 03:25] VITALS: BP 128/59; PULSE 64; RESP 18; TEMP 36.4; O2SAT 95
[2022-09-07] MEDS: OXYCODONE 5 MG TABLET PO ×2 (03:38→08:56)
[2022-09-07] MEDS: ACETAMINOPHEN 500 MG TABLET 1000 MG PO (05:34)
[2022-09-07 07:00] VITALS: BP 121/65; PULSE 60; RESP 20; TEMP 36.3; O2SAT 97
[2022-09-07] MEDS: LEVOTHYROXINE 100 MCG TABLET PO (07:00)
[2022-09-07] MEDS: OMEPRAZOLE 20 MG CAPSULE DR PO (07:00)
--- NOTE | 2022-09-07 07:29 | PC.NURSE ---
Pt alert and oriented x3. Afebrile. Pt reports 6/10 pain in right?knee, pain managed with PRN and scheduled medications. Pt?s right?knee dressing is CDI. Pt denies chest pain, SOB, and N/V. Pt is up SBA with walker and gait belt, gait is steady, tolerating a regular diet and voiding. Pt slept intermittently throughout night.?
[2022-09-07 07:31] LABS: Basophils Percent Auto 0.1 % (0.0-3.0); Hematocrit 36.6 % (33.0-51.0); Hemoglobin* 12.2 gm/dL (12.0-16.0); Immature Granulocytes Pct Auto 0.2 %; Lymphocytes Percent Auto 10.7 % (20-44); Mean Corpuscular HGB Conc 33 gm/dL (32-36); Mean Corpuscular Hemoglobin 30 pg (26-34); Mean Corpuscular Volume 91 fL (80-100); Monocytes Percent Auto 7.5 % (0.0-11.0); Neutrophils Percent Auto 81.5 % (42.0-72.0); RDW Coefficient of Variation % 12.1 % (11.5-15.5); Red Blood Count 4.01 m/uL (4.00-5.20); White Blood Count* 12.95 K/uL (4.50-11.00)
[2022-09-07 08:08] LABS: Platelet Count* 220 K/uL (140-440)
[2022-09-07 08:09] LABS: Slide Review Reflex No
--- NOTE | 2022-09-07 08:10 | PM.ORPN ---
Subjective Subjective Time Seen by Provider: 07:30 Date Seen: 09/07/22 Principal diagnosis: Status post right revision knee replacement Interval history: Disha is comfortable this morning. She denies nausea or vomiting. She will be discharging today to home. Ortho Exam Narrative Exam Narrative: Alert and oriented x3. Patient is in no acute distress. Converses without labored breathing. Hearing is grossly intact. Ambulates with a walker. Examination of the right knee shows minimal soft tissue edema. Minimal effusion. Dressing is intact. No erythema or warmth or sign of infection. Bilateral calves are soft and nontender. Quad strength 5/5, CMS is intact right lower extremity. Reji's are in place. Ice pack on the knee. Const Vital Signs, click to edit/add: Vital Signs - 24 hr 09/06/22 11:34 09/06/22 11:40 09/06/22 12:00 Temperature Pulse Rate 57 L 62 64 Pulse Rate [Right Pulse Oximeter] Respiratory Rate 16 16 16 Blood Pressure 140/77 H 125/67 123/57 L Blood Pressure [Left Arm] Pulse Oximetry 100 99 99 Oxygen Delivery Method Nasal Cannula Nasal Cannula Nasal Cannula Oxygen Flow Rate 2 2 2 09/06/22 16:30 09/06/22 16:35 09/06/22 16:40 Temperature 97 F L Pulse Rate 60 60 51 L Pulse Rate [Right Pulse Oximeter] Respiratory Rate 16 16 16 Blood Pressure 112/55 L 104/63 106/66 Blood Pressure [Left Arm] Pulse Oximetry 94 96 92 Oxygen Delivery Method Room Air Non Rebreather Mask Non Rebreather Mask Oxygen Flow Rate 6 6 09/06/22 16:45 09/06/22 16:50 09/06/22 16:55 Temperature Pulse Rate 51 L 58 L 56 L Pulse Rate [Right Pulse Oximeter] Respiratory Rate 16 16 16 Blood Pressure 124/73 121/100 H 131/69 Blood Pressure [Left Arm] Pulse Oximetry 100 95 95 Oxygen Delivery Method Non Rebreather Mask Room Air Room Air Oxygen Flow Rate 6 09/06/22 17:00 09/06/22 17:05 09/06/22 17:10 Temperature 97 F L Pulse Rate 56 L 57 L 54 L Pulse Rate [Right Pulse Oximeter] Respiratory Rate 16 16 16 Blood Pressure 132/72 141/75 H 134/68 Blood Pressure [Left Arm] Pulse Oximetry 94 98 97 Oxygen Delivery Method Room Air Room Air Room Air Oxygen Flow Rate 09/06/22 17:15 09/06/22 17:25 09/06/22 17:30 Temperature 96.6 F L Pulse Rate 55 L 53 L Pulse Rate [Right Pulse Oximeter] 51 L Respiratory Rate 16 16 16 Blood Pressure 133/77 Blood Pressure [Left Arm] 130/93 H 139/81 Pulse Oximetry 96 93 Oxygen Delivery Method Room Air Room Air Room Air Oxygen Flow Rate 09/06/22 17:45 09/06/22 18:00 09/06/22 18:15 Temperature Pulse Rate Pulse Rate [Right Pulse Oximeter] 55 L 58 L 55 L Respiratory Rate 16 16 16 Blood Pressure Blood Pressure [Left Arm] 135/71 135/66 138/74 Pulse Oximetry 93 93 93 Oxygen Delivery Method Room Air Room Air Room Air Oxygen Flow Rate 09/06/22 18:45 09/06/22 19:15 09/06/22 21:00 Temperature 97.1 F L 97.8 F 97.8 F Pulse Rate Pulse Rate [Right Pulse Oximeter] 72 61 70 Respiratory Rate 16 16 16 Blood Pressure Blood Pressure [Left Arm] 119/107 H 137/77 108/65 Pulse Oximetry 95 97 95 Oxygen Delivery Method Room Air Room Air Room Air Oxygen Flow Rate 09/06/22 22:00 09/06/22 22:45 09/06/22 22:45 Temperature 97.9 F 98.0 F Pulse Rate Pulse Rate [Right Pulse Oximeter] 54 L 71 Respiratory Rate 18 16 Blood Pressure Blood Pressure [Left Arm] 115/60 129/71 Pulse Oximetry 95 94 94 Oxygen Delivery Method Room Air Room Air Oxygen Flow Rate 09/06/22 23:00 09/07/22 00:00 09/07/22 01:00 Temperature 98.0 F 97.8 F 97.8 F Pulse Rate Pulse Rate [Right Pulse Oximeter] 71 76 75 Respiratory Rate 16 16 16 Blood Pressure Blood Pressure [Left Arm] 129/71 115/56 L 112/54 L Pulse Oximetry 95 98 99 Oxygen Delivery Method Room Air Room Air Room Air Oxygen Flow Rate 09/07/22 03:25 Temperature 97.6 F Pulse Rate Pulse Rate [Right Pulse Oximeter] 64 Respiratory Rate 18 Blood Pressure Blood Pressure [Left Arm] 128/59 L Pulse Oximetry 95 Oxygen Delivery Method Room Air Oxygen Flow Rate Assessment and Plan Assessment and plan (1) Right knee pain: Status: Acute (2) Loose right total knee arthroplasty: Status: Acute (3) Status post revision of total replacement of right knee: Problem details: 09/06/2022 Status: Acute Assessment and Plan: Plan for discharge is today to home if they meet discharge criteria. DVT prophylaxis includes aspirin 81 mg twice daily x1 month, Reji stockings x1 month may remove for 1 hr per day, frequent ambulation Remove dressing in 1 week. Observe wound and phone Orthopedics with any questions or concerns Return to clinic in 1 week for a wound check Return to clinic in [address] Key Minimize narcotic use. Wean off and discontinue soon as possible. Activities as tolerated. No strenuous activity. Outpatient physical therapy as scheduled. Ice and elevate the operative extremity. No restriction on ice. Patient had been given Celebrex after her previous knee replacement by Dr. Lester, therefore I have also sent Celebrex 200 mg b.i.d. p.r.n. to her pharmacy. This revision knee replacement is a much bigger procedure than previous and Celebrex well likely be needed for extra pain relief. Patient and I also discussed that after her previous knee replacement she started on oxycodone, had some nausea, given Zofran and was later switched to [place]. She states she is doing fine with the oxycodone currently. This was sent to her pharmacy. (4) Back pain: Status: Acute (5) Status post total right knee replacement: Problem details: Dr. Key Status: Acute (6) Gastroesophageal reflux: Problem details: Empiric treatment with omeprazole Status: Acute (7) Obstructive sleep apnea: Status: Acute (8) Anxiety: Status: Acute (9) Depression: Status: Acute
[2022-09-07] MEDS: ASPIRIN 81 MG TABLET EC PO (08:53)
[2022-09-07] MEDS: SERTRALINE 100 MG TABLET 150 MG PO (08:53)
[2022-09-07] MEDS: SENNOSIDES 1 TAB TABLET 2 TAB PO (08:53)
[2022-09-07] MEDS: PROPRANOLOL 20 MG TABLET 10 MG PO (08:53)
[2022-09-07] MEDS: GABAPENTIN 300 MG CAPSULE PO (08:53)
[2022-09-07 09:13] LABS: Potassium* 4.5 mmol/L (3.6-5.1); Sodium* 138 mmol/L (135-149)
[2022-09-07 09:14] LABS: Prothrombin Time 14.8 Seconds
[2022-09-07 09:16] LABS: Blood Urea Nitrogen* 15 mg/dL (7-30); Creatinine* 0.7 mg/dL (0.5-1.5); Estimated Glomerular Filt Rate 99 ml/min
--- NOTE | 2022-09-07 09:46 | PC.SOCIAL ---
Discharge Planning: Met with Patient and spouse. Patient has plan in place to go home with spouse caring for her. Patient has recovered from this surgery before and feels she has the assistance that she requires. Patient has contact information if needed.
== END 2022-09-07 10:36 | disposition home or self-care (01) | DRG 467 ==
PROVIDERS: Admitting Provider Orthopaedic Surgery; PCP Family Medicine; Visit Provider Orthopaedic Surgery
PROC: 0SPC0JZ Removal of Synthetic Substitute from Right Knee Joint, Open Approach (ICD-10-PCS; CPT 27447; principal; 2022-09-06 11:30)
DX: T84.032A Mechanical loosening of internal right knee prosthetic joint, initial encounter (principal); F33.1 Major depressive disorder, recurrent, moderate; G89.18 Other acute postprocedural pain; G47.33 Obstructive sleep apnea (adult) (pediatric); K21.9 Gastro-esophageal reflux disease without esophagitis; M54.9 Dorsalgia, unspecified; E03.9 Hypothyroidism, unspecified; E78.5 Hyperlipidemia, unspecified; F41.9 Anxiety disorder, unspecified; F43.12 Post-traumatic stress disorder, chronic
CPT/HCPCS: 01402; 36415; 64447; 64454; 73560; 76942; 82565; 84132; 84295; 84520; 85025; 85610; 97110; 97116; 97161; 97165; A9270; C1776; C9113; J0690; J1100; J2250; J2405; J2704; J2795; J3010; J7120

== ENCOUNTER 2023-05-27 09:31 | Emergency (ER) | payer OTHER, SELFPAY ==
[2023-05-27 09:52] VITALS: BP 128/81; PULSE 110; RESP 16; TEMP 36.8; O2SAT 96
--- NOTE | 2023-05-27 10:00 | ED.GENADULT ---
HPI - General Adult General Chief complaint: Diarrhea Stated complaint: Diarrhea since November Time Seen by Provider: 05/27/23 10:00 History of Present Illness HPI narrative: Patient has been having ongoing problems with diarrhea for a few months. Will go days without a BM, take laxatives and then have diarrhea for days. Saw a provider at [facility] last week saturday. They did a CT, US, labs and lots of stool samples. No diagnosis found . Patient has not eaten since 05/26. Has only been drinking alkaline water per her MD recommendation. She presents today with weakness and was suggested by her MD to come in and get fluids. Patient stated she had 10 BMs saturday, 10BMs saturday, 7BMs saturday and 3BMs today. Has a print out of her [employer] information. Denies blood in stool. Denies vomiting. Has been taking zofran. Has had a 25lbs weight loss since november 63-year-old woman presenting to the emergency department with concern of diarrhea and dehydration. Little bit difficult to clarify this picture in interview but it sounds as though has been experiencing copious diarrhea since early April so somewhere between 5 and 6 weeks; though on initial triage she reported since over the last 6 months. Has not had any fever with this. Unknown exposures. She did have COVID even longer ago and C difficile but that is even more remote looks like on review of records. Three days ago had imaging and and stool testing which was negative for Campylobacter and Shiga and C diff among others. Was constipated this last week in actually disimpacted herself in addition to attempting laxatives and suppositories. After that had over the weekend is back to diarrhea. Has been recommended to drink alkaline water apparently. She is more weak today and feeling lightheaded. Does have abdominal pain but only inform of cramping ahead of diarrheal bowel movements. Recommended to present here for evaluation but particularly fluid resuscitation. She has had nausea but not been vomiting. Is taking Zofran. Related Data Home Medications Medication Instructions Recorded Confirmed atorvastatin 20 mg tablet 20 mg PO HS 12/29/21 05/27/23 levothyroxine 100 mcg tablet 100 mcg PO DAILY 12/29/21 05/27/23 sertraline 100 mg tablet 100 mg PO DAILY 01/08/22 05/27/23 zolpidem 6.25 mg tablet,extended 6.25 mg PO HS 01/08/22 05/27/23 release,multiphase ascorbic acid (vitamin C) 1,000 mg 1 g PO DAILY 08/31/22 05/27/23 tablet aspirin 81 mg tablet,delayed 81 mg PO DAILY 08/31/22 05/27/23 release cholecalciferol (vitamin D3) 50 50 mcg PO DAILY 08/31/22 05/27/23 mcg (2,000 unit) tablet antiarthritic combination no.2 900 900 mg PO DAILY 03/04/23 05/27/23 mg tablet (glucosamine-chondroitin) multivitamin (Multiple Vitamins 1 tab PO QDAY 03/04/23 05/27/23 tablet) ondansetron 4 mg disintegrating 4 mg PO Q8H PRN nausea/vomiting 05/27/23 05/27/23 tablet Allergies Allergy/AdvReac Type Severity Reaction Status Date / Time meperidine [From Demerol] Allergy Verified 05/27/23 09:44 methohexital Allergy Verified 05/27/23 09:44 Review of Systems Status of ROS: Reports: 6 or more systems reviewed and unremarkable except as noted in History and below [facility] Medical History Right knee pain ?M25.561 - Pain in right knee (ICD-10) Back pain ?M54.9 - Dorsalgia, unspecified (ICD-10) Loose right total knee arthroplasty ?T84.032A - Mechanical loosening of internal right knee prosthetic joint, initial encounter (ICD-10) C. difficile enteritis ?A04.72 - Enterocolitis due to Clostridium difficile, not specified as recurrent (ICD-10) Post-traumatic stress disorder, chronic ?F43.12 - Post-traumatic stress disorder, chronic (ICD-10) Anxiety (08/24/20) ?F41.9 - Anxiety disorder, unspecified (ICD-10) Seasonal affective disorder (11/27/13) ?F33.8 - Other recurrent depressive disorders (ICD-10) Presbyopia of both eyes (01/09/10) ?H52.4 - Presbyopia (ICD-10) Moderate episode of recurrent major depressive disorder ?F33.1 - Major depressive disorder, recurrent, moderate (ICD-10) Acquired hypothyroidism (06/07/17) ?E03.9 - Hypothyroidism, unspecified (ICD-10) COVID-19 virus infection ?U07.1 - COVID-19 (ICD-10) History of electroconvulsive therapy ?Z98.890 - Other specified postprocedural states (ICD-10) Hypothyroidism ?E03.9 - Hypothyroidism, unspecified (ICD-10) Hyperlipidemia ?E78.5 - Hyperlipidemia, unspecified (ICD-10) Gastroesophageal reflux ?K21.9 - Gastro-esophageal reflux disease without esophagitis (ICD-10) Obstructive sleep apnea ?G47.33 - Obstructive sleep apnea (adult) (pediatric) (ICD-10) Anxiety ?F41.9 - Anxiety disorder, unspecified (ICD-10) Depression ?F32.A - Depression, unspecified (ICD-10) Surgical History History of revision of total knee arthroplasty (09/06/22) ?Z96.659 - Presence of unspecified artificial knee joint (ICD-10) Status post right knee replacement (2019) ?Z96.651 - Presence of right artificial knee joint (ICD-10) History of hysterectomy ?Z90.710 - Acquired absence of both cervix and uterus (ICD-10) Status post shoulder surgery (2010) ?Z98.890 - Other specified postprocedural states (ICD-10) Status post total right knee replacement (11/10/19) ?Z96.651 - Presence of right artificial knee joint (ICD-10) Hx of tonsillectomy ?Z90.89 - Acquired absence of other organs (ICD-10) History of repair of right rotator cuff (03/31/13) ?Z98.890 - Other specified postprocedural states (ICD-10) History of hysterectomy ?Z90.710 - Acquired absence of both cervix and uterus (ICD-10) History of D&C ?Z98.890 - Other specified postprocedural states (ICD-10) History of colonoscopy ?Z98.890 - Other specified postprocedural states (ICD-10) History of cholecystectomy ?Z90.49 - Acquired absence of other specified parts of digestive tract (ICD-10) Family History Mother Alzheimers disease Father Coronary artery disease Thyroid disease Sister Lupus Social History Narrative: 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 She gets primary care at the [facility] in [place]. Code status is full. She does not smoke. She does not drink alcohol. No current recreational drug use Highest level of school completed/degree received: high school graduate Smoking Status: Never smoker Do you use any of these nicotine containing products: None Second hand tobacco smoke exposure: No How often do you have a drink containing alcohol: never How often do you have six or more drinks on one occasion: Never AUDIT-C Alcohol total score: 0 Non-prescribed substance use: denies use Caffeine: Yes (Coffee occ) service: No Exam Narrative: Exam Narrative: Pleasant. Conversing easily but does appear just generally tired. NAD. Oropharynx is sticky without inflammation. Lungs appear to be clear. Heart is tachycardic in a regular rhythm. Abdomen with normal bowel sounds is overweight soft nontender. Extremities are without edema. Well-perfused. Const: Vital Signs, click to edit/add: Vital Signs - 24 hr 05/27/23 09:52 Temperature 98.3 F Pulse Rate [Pulse Oximeter] 110 H Respiratory Rate 16 Blood Pressure [Ri ght Upper Arm] 128/81 Pulse Oximetry 96 Oxygen Delivery Me thod Room Air Documenting provider has reviewed patient's vital signs: yes Course Vital Signs Vital signs: Initial Vital Signs Temperature 98.3 F 05/27/23 09:52 Temperature Source Temporal Artery Scan 05/27/23 09:52 Pulse Rate 110 H 05/27/23 09:52 Pulse Rhythm Regular 05/27/23 09:52 Pulse Strength 3+ Normal 05/27/23 09:52 Respiratory Rate 16 05/27/23 09:52 Blood Pressure 128/81 05/27/23 09:52 Blood Pressure Mean 96 05/27/23 09:52 Blood Pressure Position Sitting 05/27/23 09:52 Pulse Oximetry 96 05/27/23 09:52 Oxygen Delivery Method Room Air 05/27/23 09:52 Vital Signs Temperature 98.3 F 05/27/23 09:52 Pulse Rate 110 H 05/27/23 09:52 Respiratory Rate 16 05/27/23 09:52 Blood Pressure 128/81 05/27/23 09:52 Pulse Oximetry 96 05/27/23 09:52 Oxygen Delivery Method Room Air 05/27/23 09:52 Temperature 97.6 F 05/27/23 12:30 Pulse Rate 109 H 05/27/23 12:41 Respiratory Rate 16 05/27/23 12:35 Blood Pressure 136/88 05/27/23 12:41 Pulse Oximetry 97 05/27/23 12:30 Oxygen Delivery Method Room Air 05/27/23 12:30 Medications Administered Medications: Discontinued Medications Generic Name Dose Route Start Last Admin Trade Name Jody PRN Reason Stop Dose Admin Sodium Chloride 1,000 mls @ 1,000 mls/hr 05/27/23 10:17 05/27/23 12:00 0.9 % Sodium Chloride 1000 Ml IV 05/27/23 11:16 Infused .Q1H ONE Infusion Lactated Ringer's 1,000 mls @ 1,000 mls/hr 05/27/23 12:46 05/27/23 13:38 Lactated Ringers 1000 Ml IV 05/27/23 13:45 Infused .Q1H ONE Infusion Medical Decision Making MDM Narrative Medical decision making narrative: Appears to have a lingering diarrhea of some form. Discomfort in the abdomen does not seem to rise to a colitis. No hematochezia noted. Extensive stool and lab evaluation so far has been negative. No plans as of yet I understand for colonoscopy but this might be the next thing. Diet diary in the meantime. Is tachycardic will check chemistries and CBC. IV hydration and reassess. IVs placed receives normal saline and then L of lactated Ringer's as she feels she could still benefit from some. Overall improved on reassessment. Stable vitals though heart rate is still a bit elevated. Labs are reassuring. Normal white count good kidney function. Has normal chemistries. I do not think repeat abdominal imaging is necessary. Does have follow-up. Seems to be somewhat of an irritable bowel situation. See patient discharge plan for further discussion Medical Records Medical records reviewed: Yes I reviewed the patient's medical records Lab Data Lab results reviewed: Yes I reviewed the patient's lab results Labs: Lab Results 05/27/23 Range/Units 10:56 WBC 8.56 (4.50-11.00) K/uL RBC 4.89 (4.00-5.20) m/uL Hgb 14.9 (12.0-16.0) gm/dL Hct 43.5 (33.0-51.0) % MCV 89 (80-100) fL MCH 31 (26-34) pg MCHC 34 (32-36) gm/dL RDW Coeff of Pranav 11.8 (11.5-15.5) % Plt Count 251 (140-440) K/uL Neut % (Auto) 74.3 H (42.0-72.0) % Lymph % (Auto) 17.8 L (20-44) % Calhoun % (Auto) 6.7 (0.0-11.0) % Eos % (Auto) 0.2 (0.0-7.0) % Baso % (Auto) 0.2 (0.0-3.0) % Neut # (Auto) 6.40 (1.7-7.0) K/uL Lymph # (Auto) 1.50 (0.90-2.90) K/uL Calhoun # (Auto) 0.60 (0.00-0.90) K/UL Eos # (Auto) 0.02 (0.00-0.50) K/uL Baso # (Auto) 0.02 (0.00-0.30) K/uL Abs Immat Gran (auto) 0.07 (0.00-0.30) K/uL Imm/Tot Granulo (auto) 0.8 % Sodium 135 (135-149) mmol/L Potassium 4.1 (3.6-5.1) mmol/L Chloride 101 (96-114) mmol/L Carbon Dioxide 17 L (20-32) mmol/L Anion Gap 17 H (7-15) mEq/L BUN 20 (7-30) mg/dL Creatinine 0.8 (0.5-1.5) mg/dL Estimated Creat Clear 82.49 Estimated GFR 84 ml/min Glucose 78 (60-115) mg/dL Calcium 10.0 (8.4-10.6) mg/dL C-Reactive Protein < 0.5 L (0.5-1.0) mg/dL Discharge Plan Discharge Clinical Impression: Lightheaded, Diarrhea Patient Disposition: Home w/ Parent or Adult Condition: Stable Additional Instructions: For sure anxiety over circumstances can induce some degree of diarrhea. As long as you are not having blood in your stool or experiencing fever, could take loperamide for diarrhea. Otherwise can dose MiraLax equivalent in liquid and adjust to stool consistency to try to prevent these constipation episodes as well. Your labs so far have been reassuring as is your abdominal CT scan. If this continues I would anticipate a repeat colonoscopy. It might be helpful to begin a diet diary of everything you eat and drink and how this might be related to your gut symptoms. On follow-up in primary care then you can take that diary with you. Prescriptions: No Action multivitamin [Multiple Vitamins] Tablet 1 tab PO QDAY glucosamine-chondroitin 900 mg tablet 900 mg PO DAILY atorvastatin 20 mg tablet 20 mg PO HS levothyroxine 100 mcg tablet 100 mcg PO DAILY ascorbic acid (vitamin C) 1,000 mg tablet 1 g PO DAILY aspirin 81 mg tablet,delayed release (DR/EC) 81 mg PO DAILY Hold Instructions: Resume on 10/04/22. cholecalciferol (vitamin D3) 50 mcg (2,000 unit) tablet 50 mcg PO DAILY ondansetron 4 mg tablet,disintegrating 4 mg PO Q8H PRN (Reason: nausea/vomiting) zolpidem 6.25 mg tablet,ext release multiphase 6.25 mg PO HS sertraline 100 mg tablet 100 mg PO DAILY Follow Up/Referrals: Joyce Dean DO [Primary Care Provider] - Stand Alone Forms: [employer] Info Instructions
[2023-05-27] MEDS: 0.9 % SODIUM CHLORIDE 1000 ml 1,000 ML IV (11:01)
[2023-05-27 11:16] LABS: Chloride* 101 mmol/L (96-114); Sodium* 135 mmol/L (135-149)
[2023-05-27 11:17] LABS: Potassium* 4.1 mmol/L (3.6-5.1)
[2023-05-27 11:19] LABS: Creatinine* 0.8 mg/dL (0.5-1.5); Est. Creatinine Clearance* 82.49; Estimated Glomerular Filt Rate 84 ml/min
[2023-05-27 11:20] LABS: Anion Gap 17 mEq/L (7-15); Blood Urea Nitrogen* 20 mg/dL (7-30); Carbon Dioxide* 17 mmol/L (20-32); Glucose* 78 mg/dL (60-115)
[2023-05-27 11:30] LABS: C Reactive Protein* < 0.5 mg/dL (0.5-1.0)
[2023-05-27 12:05] LABS: Basophils Absolute Auto 0.02 K/uL (0.00-0.30); Basophils Percent Auto 0.2 % (0.0-3.0); Eosinophils Absolute Auto 0.02 K/uL (0.00-0.50); Eosinophils Percent Auto 0.2 % (0.0-7.0); Hematocrit 43.5 % (33.0-51.0); Hemoglobin* 14.9 gm/dL (12.0-16.0); Immature Granulocytes Abs Auto 0.07 K/uL (0.00-0.30); Immature Granulocytes Pct Auto 0.8 %; Lymphocytes Percent Auto 17.8 % (20-44); Mean Corpuscular HGB Conc 34 gm/dL (32-36); Mean Corpuscular Hemoglobin 31 pg (26-34); Mean Corpuscular Volume 89 fL (80-100); Monocytes Percent Auto 6.7 % (0.0-11.0); Neutrophils Percent Auto 74.3 % (42.0-72.0); Platelet Count* 251 K/uL (140-440); RDW Coefficient of Variation % 11.8 % (11.5-15.5); Red Blood Count 4.89 m/uL (4.00-5.20); White Blood Count* 8.56 K/uL (4.50-11.00)
[2023-05-27 12:15] LABS: Slide Review Reflex No
[2023-05-27 12:30] VITALS: BP 138/62; PULSE 82; RESP 16; TEMP 36.4; O2SAT 97
[2023-05-27 12:35] VITALS: BP 142/66; PULSE 96; RESP 16
[2023-05-27 12:41] VITALS: BP 136/88; PULSE 109
[2023-05-27] MEDS: LACTATED RINGERS 1000 ML 1,000 ML IV (13:00)
== END 2023-05-27 13:54 | disposition home or self-care (01) ==
PROVIDERS: Emergency Provider Family Medicine; PCP Family Medicine
DX: R19.7 Diarrhea, unspecified (principal); R42 Dizziness and giddiness
CPT/HCPCS: 36415; 80048; 85025; 86140; 96360; 99283; 99284; J7030; J7120

== ENCOUNTER 2024-04-19 11:13 | Emergency (ER) | payer OTHER, SELFPAY ==
--- OUTSIDE RECORDS SUMMARY | 2024-04-19 11:16 | XMS_ITS | Clinical Summary ---
Author Organization [facility] Address [place], [place] [address] Care Team Providers Care Technical Support Director Name Role Phone Shaka Sheriff MD Unavailable Daly Kemp MD Unavailable Unava Joyce Amato DO Primary Care Provider Allergies Active Allergy Reactions Criticality Noted Date Comments Meperidine Rash 05/11/2005 Methohexital Rash Low 06/15/2016 Mild rash across the chest. Responded to IV benadryl. Medications aspirin enteric coated 81 mg tabletIndications:Chest pain, unspecified Take 1 tablet by mouth once daily with a meal. 0 12/22/19 11 Active Cholecalciferol, Vitamin D3, (VITAMIN D-3) 2,000 unit tablet Take 2,000 units by mouth once daily. Active multivitamin (MVI) tablet Take 1 tablet by mouth once daily. 0 11/15/19 18 Active ascorbic acid, vitamin C, (VITAMIN C) 1,000 mg tablet Take 1 tablet by mouth once daily. 0 11/15/19 18 Active CPAPIndications:YUNI (obstructive sleep apnea) CPAP machine for home use at pressure: 8-12 cmw, nasal mask x1/3month with nasal cushion x2/mo 1 Device 11 10/19/19 21 Active ondansetron (ZOFRAN ODT) 4 mg disintegrating tabletIndications:Nausea Place 1 Tablet (4 mg) on the tongue every 8 hours if needed for Nausea/Vomi ting. 30 Tablet 05/29/19 24 Active sertraline (ZOLOFT) 100 mg tabletIndications:Major depressive disorder, recurrent severe without psychotic features (HC) 100mg daily 90 Tablet 3 10/14/19 24 Active zolpidem CR (AMBIEN CR) 6.25 mg Extended-Release tabletIndications:Insomn ia, unspecified type Take 1 Tablet (6.25 mg) by mouth at bedtime. 30 Tablet 5 10/14/19 24 Active atorvastatin (LIPITOR) 20 mg tabletIndications:Pure hypercholesterolemia Take 1 Tablet (20 mg) by mouth at bedtime. 100 Tablet 3 01/10/20 24 Active levothyroxine (SYNTHROID) 100 mcg tabletIndications:Acquir ed hypothyroidism Take 1 Tablet (100 mcg) by mouth before breakfast. 100 Tablet 3 01/10/20 24 Active Active Problems Problem Noted Date Diagnosed Date Class 2 severe obesity with body mass index (BMI) of 35 to 39.9 with serious comorbidity 01/10/2024 Fatty liver 05/24/2023 Obstructive sleep apnea syndrome 08/17/2021 Posttraumatic stress disorder 08/17/2021 Major depressive disorder, r ecurrent severe without psychotic features 05/05/2021 Anxiety 08/24/2020 Suicide ideation 08/24/2020 Acquired hypothyroidism 06/07/2017 YUNI 11/25/2014 AHI-37 supine 01/04/2015 Rule out Personality Disorde r; BPD traits with hx cutting and the childhood trauma 11/27/2013 Seasonal affective disorder 11/27/2013 Post traumatic stress disorder (PTSD) 04/23/2012 Encounter for long-term (current) use of other m edications 02/21/2011 Overview (06/25/2014): Benzodiazepine. Controlled substance agreement signed No known misuse or early refills. OK to prescribe monthly unless this changes. Followed by psychiatry. 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 Panic disorder without agoraphobia 12/06/2005 Overview (11/25/2006): 09/25/2001 initially documented in chart. Followed by Dr Proctor and [address] HYPERCHOLESTEROLEMIA, PURE 09/06/2004 Esophageal reflux 09/25/2001 MDD (major depressive disord er), recurrent episode, moderate MDD (recurrent major depressive disorder) in rem ission Episode of recurrent major depressive disorder Resolved Problems Problem Noted Date Diagnosed Date Resolved Date Morbid exogenous obesity 06/07/201710/2020 Encounters for administrative purpose 04/06/2015 06/07/2017 Routine adult health maintenance 08/26/2014 06/07/2017 Overview (08/26/2014): Colonoscopy 08/2014 normal repeat in 10 years Controlled substance agreeme nt signed 10-15-13 ERX 03/17/2014 06/25/2014 MDD (major depressive disord er), recurrent episode 03/05/2014 06/07/2017 Rule Out Bipolar affective disorder 03/05/2014 06/07/2017 Encounter for long-term (cur rent) use of other medications 10/22/2011 05/25/2013 Overview (10/22/2011): Cont substance agreement 10/27 Major depressive disorder, r ecurrent episode, in partial or unspecified remission 04/10/200907/16 Major depressive disorder, r ecurrent episode, moderate 04/17/2007 07/31/2010 MAJOR DEPRESSION RECURRENT; currently severe 8 03/05/2014 Major depressive disorder, r ecurrent episode, severe, without mention of psychotic behavior 03/18/2007 07/31/2010 Plantar fascial fibromatosis 11/25/2006 06/07/2017 Unspecified disorder of thyroid 04/15/2006 06/07/2017 Calculus of gallbladder with out mention of cholecystitis or obstruction 05/11/2005 07/12/2005 PERIMENOPAUSAL STATUS 08/17/20032005 OBESITY - NOS 04/19/2003 06/07/2017 BRONCHITIS, ACUTE 01/11/2004 PAIN IN JOINT, ANKLE/FOOT Severe recurrent major depre ssion without psychotic features 06/07/2017 MDD (major depressive disord er), recurrent severe, without psychosis 06/07/2017 MDD (major depressive disord er), recurrent, in partial remission 06/07/2017 MDD (recurrent major depress mena disorder) in remission 06/07/2017 Recurrent major depression i n partial remission 06/07/2017 Major depressive disorder, r ecurrent episode, moderate 06/07/2017 MDD (major depressive disord er), recurrent episode, mild 05/23/2020 MDD (major depressive disord er), recurrent, in partial remission 05/23/2020 Encounters Date Type Department Care Team Description 04/19/2024 Nurse Triage [facility] [address] [place] [address] Joyce Dean, DO Diarrhea 04/03/2024 3:50 PM DATABASE SECURITY ADMINISTRATOR Ancillary Procedure [facility] [address] [place] [phone] 04/03/2024 Travel 02/18/2024 2:00 PM DATABASE SECURITY ADMINISTRATOR Office Visit [facility] [address] [place] [address] Manny Dumont, DPM Consult (Left 2nd toe pain) 02/18/2024 Travel 01/31/2024 Telephone [facility] [address] [place] [address] Francisco Lincoln MD Medication Management from Last 3 Months Immunizations Name Administration Dates Next Due HepA-HepB (Twinrix) 12/28/2014,08/18/2014,2014 Influenza, IIV3 (Age >=3 years) 12/19/2015,01/10,01/25/2003 Influenza, IIV4 01/15/2022,01/15/2019,12/26/2016 Td (Age >=7 Years) 03/16/2019,08/31/2003 Tdap 02/08/2009 Zoster (Shingrix-RZV, recombinant) 06/16/2019, Family History Medical History Relation Name Comments Heart Disease Father Other Father alcoholism Thyroid Disease Father Cancer-prostate Maternal Grandfather age 92 Asthma Maternal Grandmother Alzheimer's disease Mother Genetic Other irritable bowel in sister and mother ~depression- PGF Diabetes Paternal Grandfather Thyroid Disease Paternal Grandmother Other Sister migraines Relation Name Status Comments Father Maternal Grandfather Maternal Grandmother Mother Other Paternal Grandfather Paternal Grandmother Alive Sister Social History Tobacco Use Types Packs/Day Years Used Date Smoking Tobacco: Never Passive Smoke Exposure: Never Smokeless Tobacco: Never Tobacco Cessation:Counseling Given: Not Answered Alcohol Use Standard Drinks/Week Comments No 0 (1 standard drink = 0.6 oz pur e alcohol) Quit drinking in 2000 PHQ-2 Answer Date Recorded PHQ-2 TOTAL SCORE 0 01/10/2024 Social Connections Answer Date Recorded Do you often feel lonely or isolated from those around you? 0 01/10/2024 Financial Resource Strain Answer Date R ecorded Difficulty of Paying Living Expenses 3 01/10/2024 Difficulty of Paying Living Expenses Not on file 01/10/2024 Food Insecurity Answer Date Recorded Do you worry your food will run out before you are able to buy more? 1 01/10/2024 Transportation Needs Answer Date Record ed Does lack of transportation keep you from medica l appointments? 1 01/10/2024 Does lack of transportation keep you from work, meetings or getting things that you need? 1 01/10/2024 Housing Stability Answer Date Recorded What is your housing situation today? 1 01/10/2024 Utilities Answer Date Recorded Do you have trouble paying f or utilities (for example, heat, electricity, water, phone)? 1 01/10/2024 Comments No Sex and Gender Information Value Date Recorded Sex Assigned at Not on file Legal Sex Female 5:25 AM DATABASE SECURITY ADMINISTRATOR Gender Identity Not on file Sexual Orientation Not on file Obstetrics History Para Term AB IAB SAB Ectopic Multiple Livin g Live Births 2 2 2 0 0 0 0 0 2 Date Outcome GA Total Labor Labor/2nd/3rd Weight Sex Type Anes PTL Magaly A1 A5 Name Clin Term Term Last Filed Vital Signs Vital Sign Reading Time Taken Comments Blood Pressure 155/78 02/18/2024 2:11 PM DATABASE SECURITY ADMINISTRATOR Pulse 63 02/18/2024 2:11 PM DATABASE SECURITY ADMINISTRATOR Temperature 36.9 C (98.5 F) 06/05/2023 10:43 AM CDT Respiratory Rate 16 03/04/2023 2:01 PM DATABASE SECURITY ADMINISTRATOR Oxygen Saturation 99% 02/18/2024 2:11 PM DATABASE SECURITY ADMINISTRATOR Inhaled Oxygen Concentration - - Weight 89 kg (196 lb 3.2 oz) 02/18/2024 2:11 PM DATABASE SECURITY ADMINISTRATOR Height 158 cm (5' 2.21) 01/10/2024 7:19 AM CDT Body Mass Index 35.65 01/10/2024 7:19 AM CDT Plan of Treatment Health Maintenance Due Date Last Done Comments HIV for age 15-65 1977 Pneumococcal series for age 50+ (1 of 1 - PCV) 01/22/2012 RSV vaccine for adults or (1 - Risk 60-74 years 1-dose series) 2022 COVID-19 vaccine series ( - season) 2023 Influenza for age 50-64 11/17/2023 01/16/20, 01/15/2019, 12/26/2016, Additional history exists BMI (ht and wt on same day) for age 18+ 01/09/2025 01/10/2024, 05/20/2023, 05/13/2023, Additional history exists Depression screening for age 12+ 01/09/2025 01/10/2024, 10/14/2023, 04/15/2023, Additional history exists Mammogram for age 45-75 04/03/2025 04/03/19, 11/16/2022, 06/13/2020, Additional history exists Lipids for age 45-75 01/09/2029 01/10/2024, 11/15/2022, 08/16/2021, Additional history exists Tetanus booster 03/16/2029 03/16/2019, 01/17, 08/31/2003 Colonoscopy through age 75 01/20/203001/20, 2020, 2020, Additional history exists Tdap Completed 02/08/2009 Zoster (shingles) series for age 50+ Completed 06/16/2019, 02/19/2019 Hepatitis C screening for ag e 18-79 Completed 05/24/2023, 05/01/2013 Procedures Procedure Name Priority Date/Time Associated Diagnosis Comments XR MAMMO BILAT SCREENING Routine 04/03/2024 3:16 PM DATABASE SECURITY ADMINISTRATOR Screening mammogram for breast cancer LIPID PANEL W REFLEX MEASURED LDL Routine 01/10/2024 7:52 AM CDT HYPERCHOLESTEROLEMI A, PURE ANTI HCV Routine 05/24/2023 10:56 AM DATABASE SECURITY ADMINISTRATOR Acute diarrhea Elevated LFTs COLONOSCOPY DIAGNOSTIC Routine 2020 10:25 AM DATABASE SECURITY ADMINISTRATOR Hematochezia from Last 3 Months or Most Recently Relevant to Health Maintenance Results * XR MAMMO BILAT SCREENING (04/03/2024 3:16 PM DATABASE SECURITY ADMINISTRATOR) Anatomical Region Laterality Modality BREASTS, Breast Left, Breast Right Bilateral Mammography Impressions 04/06/2024 11:40 AM DATABASE SECURITY ADMINISTRATOR There is no radiographic evidence for malignancy. Recommend annual mammograms. MAMMOGRAM ASSESSMENT: ACR 1 Negative PATIENTS: You will also receive a letter with your examination results in an easy to read format. If you have questions about your results, please contact your referring provider. Narrative 04/06/2024 11:40 AM DATABASE SECURITY ADMINISTRATOR For Patients: As a result of the Century Cures Act, medical imaging exams and procedure reports are released immediately into your electronic medical record. You may view this report before your referring provider. If you have questions, please contact your health care provider. XR MAMMO BILAT SCREENING [[id number]] CLINICAL HISTORY: This is an asymptomatic 64 y.o. patient. INDICATION FOR EXAM: Mammogram Screening. TECHNIQUE: CC & MLO views were obtained. This study was evaluated with the assistance of Computer-Aided Detection. COMPARISON FILM: Yes 11/16/22 [facility] 06/13/20 [employer] FINDINGS: There are scattered areas of fibroglandular density. There are no dominant masses, suspicious micro calcifications or areas of architectural distortion. us Joyce Dean DO MAMMO Final Resul t * (ABNORMAL) LIPID PANEL W REFLEX MEASURED LDL (01/10/2024 7:52 AM CDT) CHOLESTEROL, TOTAL 185 <200 mg/dL [facility] HDL CHOLESTEROL 59 > OR = 50 mg/dL [facility] TRIGLYCERIDES 90 <150 mg/dL [facility] LDL-CHOLESTEROL 108(H) mg/dL (calc) [facility] Comment: Reference range: <100 Desirable range <100 mg/dL for primary prevention; <70 mg/dL for patients with CHD or diabetic patients with > or = 2 CHD risk factors. LDL-C is now calculated using the Cristiano calculation, which is a validated novel method providing better accuracy than the Friedewald equation in the estimation of LDL-C. Mehdi REAL et al. ANNIKA. 2013;310(19): 7344-3457 (http://education.[employer]/faq/IRQ103) CHOL/HDLC RATIO 3.1 <5.0 (calc) [facility] NON HDL CHOLESTEROL 126 <130 mg/dL (calc) Contents [facility] Comment: For patients with diabetes plus 1 major ASCVD risk factor, treating to a non-HDL-C goal of <100 mg/dL (LDL-C of <70 mg/dL) is considered a therapeutic option. Blood BLOOD SPECIMEN / Unknown 01/10/2024 7:52 AM CDT 01/10/2024 7:52 AM CDT us Joyce Dean DO CHEMISTRY Final Resul t [facility] [address] [address], [facility] [address] * ANTI HCV (05/24/2023 10:56 AM DATABASE SECURITY ADMINISTRATOR) Pathologist [facility] HEPATITIS C ANTIBODY Non-Reacti ve Non-React mena 05/24/2023 6:31 PM DATABASE SECURITY ADMINISTRATOR [facility] Comment:Please note, per www .CDC.gov: If a patient is known to be at high risk of HCV infection, or is symptomatic, and the physician's suspicion of HCV infection is high, HCV RNA testing is often employed and is of diagnostic value, even after an initial negative anti-HCV test result. Blood BLOOD SPECIMEN / Unknown Butterfly / Unknown 05/24/2023 10:56 AM DATABASE SECURITY ADMINISTRATOR 05/24/2023 10:56 AM DATABASE SECURITY ADMINISTRATOR us Joyce Dean DO SEND OUTS Final Resul t [facility] [address] [place] [address], * COLONOSCOPY DIAGNOSTIC (2020 10:25 AM DATABASE SECURITY ADMINISTRATOR) us Joyce Dean DO GI PROCEDURE ORD Final Resu lt from Last 3 Months or Most Recently Relevant to Health Maintenance Insurance [employer]LEGIANCE AL[employer]GIANCE [employer] Member Subscriber Plan / Payer (Ef fective 2020-Present) Name:Disha Ceballos Relation to Subscriber:Employee Name:MICHAEL Date of :1998 (Home) Address: [address] [place] [id number] Payer ID:Not on file Group ID:Not on file Type:Not on file Address: [place] [id number] WC [employer] Member Subscriber Plan / Payer (Ef fective 2021-Present) Name:Disha Ceballos Relation to Subscriber:Employee Name:MICHAEL Date of :1998 (Home) Address: [address] [place] [id number] Payer ID:Not on file Group ID:Not on file Type:Not on file Address: [address] [employer] Advance Directives * Full Code (Latest Code Status on File) Date Activated Date Inactivated Comments 08/24/2020 12:25 AM 08/30/2020 12:48 PM Question Answer Comments Code Status Discussion: Not Discussed * Full Code Date Activated Date Inactivated Comments 06/27/2018 6:07 AM 06/28/2018 2:13 AM * Full Code Date Activated Date Inactivated Comments 05/09/2018 5:57 AM 05/10/2018 2:16 AM * Full Code Date Activated Date Inactivated Comments 03/28/2018 6:29 AM 03/29/2018 2:18 AM * Full Code Date Activated Date Inactivated Comments 02/14/2018 6:34 AM 02/15/2018 2:17 AM Care Teams Technical Support Director Relationship Specialty [place] [address] [place] [address] PCP - General Family Practice 01/30/21 Shaka Sheriff MD Cardiology Cardiovascular Disease 12/21/10 Daly Kemp MD Psychiatry Psychiatry 05/10/15
--- OUTSIDE RECORDS SUMMARY | 2024-04-19 11:16 | XMS_ITS | Continuity of Care Document ---
Author Organization [facility] Address [address] [address] [place] [address] Phone Care Team Providers Care Front Office Developer Name Role Phone Chris Diamond MD, Nick Unavailable Unavailabl e Advance Directives Directive Yes / No Effective Date File Name No Information Encounters Encounter Description Practice Location Reason(s) For Visit Diagnoses Date Provider Providers Copied on Encounter [facility], [address] [address], [place], [place], [id number], [place] tel:[phone] [facility] No Information 4 Chris Romero. [address] [facility], [facility] [address], [place], [place], [id number] , [place]. tel:[phone] Family History Family Member Type Diagnosis Age At Onset No Information Payers Payer name Insurance type Covered democrat ID Authoriza tion(s) No Information Social History Type Description Quantity Date Captured Comments Sex Female Smoking Status No Information Chief Complaint And Reason For Visit No Information Reason For Referral Reason For Referral No Information History Of Present Illness Encounter Date Complaint History Of Prese nt Illness No Information Functional Status Date Functional Assessmen t No Information Instructions Date Instruction Additional Infor mation No Information Assessments Type Assessment Date No Information Patient Care Teams Name Effective Dates (start - stop) Status Members No Information
[2024-04-19 11:23] VITALS: BP 119/70; PULSE 84; RESP 18; TEMP 36.3; O2SAT 99; BMI 35.5
--- NOTE | 2024-04-19 11:35 | CRLHL7_ITS ---
For Patients: As a result of the Cures Act, medical imaging exams and procedure reports are released immediately into your electronic medical record. You may view this report before your referring provider. If you have questions, please contact your health care provider. INDICATION: Lower abdominal pain. Diarrhea TECHNIQUE: CT abdomen and pelvis acquired with 95 cc of Isovue 370 IV contrast. COMPARISON: CT abdomen and pelvis 01/07/2022. FINDINGS: Lower chest: Mild bibasilar scarring and atelectasis. No pleural or pericardial effusions. Liver: Unremarkable. Spleen: Unremarkable. Pancreas: Unremarkable. Gallbladder and bile ducts: Cholecystectomy. Stable mild intrahepatic biliary ductal dilatation likely related to prior cholecystectomy. Kidneys: Bilateral cysts measure up to 7.5 cm, as before. No urolithiasis or hydronephrosis. Adrenal glands: Unremarkable. GI tract: No obstruction or focal inflammatory change of the GI tract. No inflammatory change adjacent to the appendix. No free air or free fluid. Lymph nodes: No pathologic lymphadenopathy. Vascular structures: Unremarkable. Pelvic Organs: Hysterectomy. Bladder is unremarkable. Bones: No acute or suspicious osseous abnormality. Degenerative changes spine and pelvis. IMPRESSION: No acute intra-abdominal or pelvic abnormality. Dictated by Sergey Burdick MD @ 04/19/2024 1:29:57 PM Please note that all CT scans at this facility use dose modulation, iterative reconstruction, and/or weight-based dosing when appropriate to reduce radiation dose to as low as reasonably achievable. Dictated by: Sergey Burdick MD @ 04/19/2024 13:30:27 (Electronically Signed)
--- NOTE | 2024-04-19 11:41 | ED.GENADULT ---
HPI - General Adult General Date Seen: 04/19/24 Chief complaint: Diarrhea Stated complaint: Diarrhea Time Seen by Provider: 04/19/24 11:19 History of Present Illness HPI narrative: Patient is a 64-year-old woman here for evaluation of diarrhea which started 6 days ago. She has crampy lower abdominal pain, she has had some sweats and lightheadedness around the time that she is having cramping and needs to have a bowel movement. Stools have been watery, she has noted a little bit of mucus and a little bit of bright red blood but she thinks that is probably due to her hemorrhoids. She has not had fevers. She has had nausea and anorexia but has not had vomiting. She has been trying to drink a lot of water. She does have a history of hepatitis a last year, she believes that is resolved. She has had C diff colitis previously as well. No recent antibiotics or travel. She notes that prior colonoscopies have been normal. No personal history of diverticulitis but she says her mom and sisters have had surgery for diverticulitis. She is here today with her . She is not a smoker, no significant alcohol use. Related Data Home Medications ?Medication ?Instructions ?Recorded ?Confirmed atorvastatin 20 mg tablet 20 mg PO HS 12/29/21 04/19/24 levothyroxine 100 mcg tablet 100 mcg PO DAILY 12/29/21 04/19/24 sertraline 100 mg tablet 100 mg PO DAILY 01/08/22 04/19/24 zolpidem 6.25 mg tablet,extended 6.25 mg PO HS 01/08/22 04/19/24 release,multiphase Allergies Allergy/AdvReac Type Severity Reaction Status Date / Time meperidine (From Demerol) Allergy Verified 04/19/24 13:24 methohexital Allergy Verified 04/19/24 13:24 Review of Systems Status of ROS: Reports: 10 or more systems reviewed and unremarkable except as noted in History and below [facility] Medical History Right knee pain ?M25.561 - Pain in right knee (ICD-10) Back pain ?M54.9 - Dorsalgia, unspecified (ICD-10) Loose right total knee arthroplasty ?T84.032A - Mechanical loosening of internal right knee prosthetic joint, initial encounter (ICD-10) C. difficile enteritis ?A04.72 - Enterocolitis due to Clostridium difficile, not specified as recurrent (ICD-10) Post-traumatic stress disorder, chronic ?F43.12 - Post-traumatic stress disorder, chronic (ICD-10) Anxiety (08/24/20) ?F41.9 - Anxiety disorder, unspecified (ICD-10) Seasonal affective disorder (11/27/13) ?F33.8 - Other recurrent depressive disorders (ICD-10) Presbyopia of both eyes (01/09/10) ?H52.4 - Presbyopia (ICD-10) Moderate episode of recurrent major depressive disorder ?F33.1 - Major depressive disorder, recurrent, moderate (ICD-10) Acquired hypothyroidism (06/07/17) ?E03.9 - Hypothyroidism, unspecified (ICD-10) COVID-19 virus infection ?U07.1 - COVID-19 (ICD-10) History of electroconvulsive therapy ?Z98.890 - Other specified postprocedural states (ICD-10) Hypothyroidism ?E03.9 - Hypothyroidism, unspecified (ICD-10) Hyperlipidemia ?E78.5 - Hyperlipidemia, unspecified (ICD-10) Gastroesophageal reflux ?K21.9 - Gastro-esophageal reflux disease without esophagitis (ICD-10) Obstructive sleep apnea ?G47.33 - Obstructive sleep apnea (adult) (pediatric) (ICD-10) Anxiety ?F41.9 - Anxiety disorder, unspecified (ICD-10) Depression ?F32.A - Depression, unspecified (ICD-10) Surgical History History of revision of total knee arthroplasty (09/06/22) ?Z96.659 - Presence of unspecified artificial knee joint (ICD-10) Status post right knee replacement (2019) ?Z96.651 - Presence of right artificial knee joint (ICD-10) History of hysterectomy ?Z90.710 - Acquired absence of both cervix and uterus (ICD-10) Status post shoulder surgery (2010) ?Z98.890 - Other specified postprocedural states (ICD-10) Status post total right knee replacement (11/10/19) ?Z96.651 - Presence of right artificial knee joint (ICD-10) Hx of tonsillectomy ?Z90.89 - Acquired absence of other organs (ICD-10) History of repair of right rotator cuff (03/31/13) ?Z98.890 - Other specified postprocedural states (ICD-10) History of hysterectomy ?Z90.710 - Acquired absence of both cervix and uterus (ICD-10) History of D&C ?Z98.890 - Other specified postprocedural states (ICD-10) History of colonoscopy ?Z98.890 - Other specified postprocedural states (ICD-10) History of cholecystectomy ?Z90.49 - Acquired absence of other specified parts of digestive tract (ICD-10) Family History Mother Alzheimers disease Father Coronary artery disease Thyroid disease Sister Lupus Social History Narrative: She presents with her . is healthcare power of city attorney. She works at [employer]. She gets primary care at [facility] [place]. Code status is full. She does not smoke. She does not drink alcohol. No current recreational drug use Highest level of school completed/degree received: high school graduate Smoking Status: Never smoker Do you use any of these nicotine containing products: None Second hand tobacco smoke exposure: No How often do you have a drink containing alcohol: never How often do you have six or more drinks on one occasion: Never AUDIT-C Alcohol total score: 0 Non-prescribed substance use: marijuana (any form) Non-prescribed substance use details: occasionally takes thc gummy at [facility] for sleep Caffeine: Yes (Coffee occ) service: No Exam Narrative: Exam Narrative: Vital signs reviewed In general, alert, nontoxic woman. She looks somewhat fatigued. Head: Normocephalic, atraumatic. Eyes: Sclera clear. Pupils equal and reactive. ENT: Mucous membranes moist. Neck: Supple without adenopathy. Heart: Regular rate and rhythm without murmur. Lungs: Clear. No increased work of breathing, crackles or wheezes. Abdomen: Soft, nontender to palpation. Extremities: Well perfused, pulses intact. No significant edema. Neurologic: Alert, conversant. Speech fluent, face symmetric. Moves all extremities equally. Skin: Warm, dry well perfused. Affect: Normal. Const: Vital Signs, click to edit/add: Vital Signs - 24 hr 04/19/24 11:23 04/19/24 13:00 04/19/24 14:09 Temperature 97.4 F L 97.4 F L Pulse Rate 72 Pulse Rate [Pulse Oximeter] 84 84 Respiratory Rate 18 18 18 Blood Pressure 142/74 H Blood Pressure [Ri ght Upper Arm] 119/70 Pulse Oximetry 99 97 Oxygen Delivery Me thod Room Air Course Course ED Course: She was up to the bathroom during our initial interaction, but says that she just passed some gas. If she is able to provide a stool sample sent for C diff and culture. Otherwise, will place an IV, give normal saline, check electrolytes, routine labs and a CT scan of the abdomen to look for possible diverticulitis or other colitis. She has not had prior abdominal surgeries. I doubt this represents other abdominal pathology such as appendicitis, bowel obstruction, cholecystitis or pancreatitis. Labs all reviewed, normal. CT scan by my review showed renal cysts but I did not see any inflammatory changes in the abdomen or pelvis. Final radiology read reviewed, bilateral renal cyst but no evidence of diverticulitis, obstruction, or other inflammatory findings. In the absence of recent antibiotics or colitis on CT my suspicion of C diff is somewhat lower but she did not have any diarrhea while here so we were not able to send a sample. I have recommended that she hold off on antidiarrheals until we answer that question. She can return a sample to her clinic tomorrow. Otherwise, maintain hydration, okay to advance diet. Return for significant abdominal pain, fevers, bloody stools or other worsening. Vital Signs Vital signs: Initial Vital Signs Temperature 97.4 F L 04/19/24 11:23 Temperature Source Temporal Artery Scan 04/19/24 11:23 Pulse Rate 84 04/19/24 11:23 Pulse Rhythm Regular 04/19/24 11:23 Respiratory Rate 18 04/19/24 11:23 Blood Pressure 119/70 04/19/24 11:23 Blood Pressure Mean 86 04/19/24 11:23 Blood Pressure Position Sitting 04/19/24 11:23 Pulse Oximetry 99 04/19/24 11:23 Oxygen Delivery Method Room Air 04/19/24 11:23 Vital Signs Temperature 97.4 F L 04/19/24 11:23 Pulse Rate 84 04/19/24 11:23 Respiratory Rate 18 04/19/24 11:23 Blood Pressure 119/70 04/19/24 11:23 Pulse Oximetry 99 04/19/24 11:23 Oxygen Delivery Method Room Air 04/19/24 11:23 Temperature 97.4 F L 04/19/24 14:09 Pulse Rate 84 04/19/24 14:09 Respiratory Rate 18 04/19/24 14:09 Blood Pressure 142/74 H 04/19/24 13:00 Pulse Oximetry 97 04/19/24 13:00 Oxygen Delivery Method Room Air 04/19/24 11:23 Medications Administered Medications: Discontinued Medications Generic Name Dose Route Start Last Admin Trade Name Freq PRN Reason Stop Dose Admin Sodium Chloride 1,000 mls @ 1,000 mls/hr 04/19/24 11:45 04/19/24 13:00 0.9 % Sodium Chloride 1000 Ml IV 04/19/24 12:44 Infused .Q1H CLIFF Infusion Medical Decision Making Lab Data Labs: Lab Results 04/19/24 Range/Units 12:05 WBC 6.45 (4.50-11.00) K/uL RBC 4.81 (4.00-5.20) m/uL Hgb 14.6 (12.0-16.0) gm/dL Hct 42.1 (33.0-51.0) % MCV 88 (80-100) fL MCH 30 (26-34) pg MCHC 35 (32-36) gm/dL RDW Coeff of Pranav 11.8 (11.5-15.5) % Plt Count 228 (140-440) K/uL Neut % (Auto) 62.6 (42.0-72.0) % Lymph % (Auto) 27.4 (20-44) % Screven % (Auto) 9.0 (0.0-11.0) % Eos % (Auto) 0.8 (0.0-7.0) % Baso % (Auto) 0.2 (0.0-3.0) % Neut # (Auto) 4.04 (1.7-7.0) K/uL Lymph # (Auto) 1.77 (0.90-2.90) K/uL Screven # (Auto) 0.60 (0.00-0.90) K/UL Eos # (Auto) 0.05 (0.00-0.50) K/uL Baso # (Auto) 0.01 (0.00-0.30) K/uL Abs Immat Gran (auto) 0.00 (0.00-0.30) K/uL Imm/Tot Granulo (auto) 0.0 % Sodium 136 (135-149) mmol/L Potassium 3.5 L (3.6-5.1) mmol/L Chloride 106 (96-114) mmol/L Carbon Dioxide 18 L (20-32) mmol/L Anion Gap 12 (7-15) mEq/L BUN 17 (7-30) mg/dL Creatinine 0.7 (0.5-1.5) mg/dL Estimated Creat Clear 46.13 Estimated GFR 98 ml/min Glucose 127 H (60-115) mg/dL Lactate 1.5 (0.5-1.9) mmol/L Calcium 9.7 (8.4-10.6) mg/dL Magnesium 1.8 (1.5-2.6) mg/dL Total Bilirubin 0.9 (0.1-1.5) mg/dL Direct Bilirubin 0.3 (0.0-0.5) mg/dL AST 25 (12-35) U/L ALT 22 (4-35) U/L Alkaline Phosphatase 57 (40-150) U/L C-Reactive Protein < 0.5 L (0.5-1.0) mg/dL Total Protein 6.9 (6.0-8.3) g/dL Albumin 4.4 (3.3-5.0) g/dL Imaging Data CT scan - abdomen: Attestation: I have reviewed the pertinent imaging results. Radiologist's impression: [place] [address] Diagnostic Imaging Report Patient: Disha Reyes MR#: [id number] : 1960 Acct:[id number] Loc: ED Service Date: 04/19/[address]: Ordering Physician: Nilda Cox M.D. Date of Service: 04/19/24 Procedure(s): CT abdomen pelvis w con Accession Number(s): [id number] cc: Nilda Cox M.D.; Joyce Dean D.O.~ For Patients: As a result of the Century Cures Act, medical imaging exams and procedure reports are released immediately into your electronic medical record. You may view this report before your referring provider. If you have questions, please contact your health care provider. INDICATION: Lower abdominal pain. Diarrhea TECHNIQUE: CT abdomen and pelvis acquired with 95 cc of Isovue 370 IV contrast. COMPARISON: CT abdomen and pelvis 01/07/2022. FINDINGS: Lower chest: Mild bibasilar scarring and atelectasis. No pleural or pericardial effusions. Liver: Unremarkable. Spleen: Unremarkable. Pancreas: Unremarkable. Gallbladder and bile ducts: Cholecystectomy. Stable mild intrahepatic biliary ductal dilatation likely related to prior cholecystectomy. Kidneys: Bilateral cysts measure up to 7.5 cm, as before. No urolithiasis or hydronephrosis. Adrenal glands: Unremarkable. GI tract: No obstruction or focal inflammatory change of the GI tract. No inflammatory change adjacent to the appendix. No free air or free fluid. Lymph nodes: No pathologic lymphadenopathy. Vascular structures: Unremarkable. Pelvic Organs: Hysterectomy. Bladder is unremarkable. Bones: No acute or suspicious osseous abnormality. Degenerative changes spine and pelvis. IMPRESSION: No acute intra-abdominal or pelvic abnormality. Dictated by Sergey Burdick MD @ 04/19/2024 1:29:57 PM Please note that all CT scans at this facility use dose modulation, iterative reconstruction, and/or weight-based dosing when appropriate to reduce radiation dose to as low as reasonably achievable. Dictated by: Sergey Burdick MD @ 04/19/2024 13:30:27 Discharge Plan Discharge Clinical Impression: Diarrhea Patient Disposition: Home, Self-Care Condition: Stable Instructions: Acute Diarrhea (ED) Additional Instructions: All of your labs today are reassuring, and your CT scan is normal aside from kidney cysts which are stable. These are not associated with your diarrhea. We have not tested for C diff as we do not have a stool sample yet, but if your diarrhea persist this could be done through your clinic. Viral diarrhea can last up to 10 days or so, so it is possible that this will resolve on its own. I would recommend that you have testing for C diff prior to using antidiarrheal medications, given that you have history of this. Return to the ER for new symptoms such as severe abdominal pain, high fevers, vomiting or other worsening. Primary care follow-up if not improving over the next few days. Prescriptions: No Action atorvastatin 20 mg tablet 20 mg PO HS levothyroxine 100 mcg tablet 100 mcg PO DAILY zolpidem 6.25 mg tablet,ext release multiphase 6.25 mg PO HS sertraline 100 mg tablet 100 mg PO DAILY Follow Up/Referrals: Joyce Dean DO [Primary Care Provider] - Stand Alone Forms: [employer] Info Instructions
--- OUTSIDE RECORDS SUMMARY | 2024-04-19 11:41 | XMS_ITS | Clinical Summary ---
Author Organization [facility] Address [place], [place] [address] Care Team Providers Care Journalism Teacher Name Role Phone Shaka Sheriff MD Unavailable [phone] Daly Kemp MD Unavailable Unava Joyce Amato [...] Department Care Team Description 04/19/2024 Nurse Triage [facility] [address] [place] [address] Joyce Dean, DO Diarrhea 04/03/2024 3:50 PM BOARD OF EDUCATION SECRETARY Ancillary Procedure [facility] [address] [place] [phone] 04/03/2024 Travel 02/18/2024 2:00 PM BOARD OF EDUCATION SECRETARY Office Visit [facility] [address] [place] [address] Manny Dumont, DPM Consult (Left 2nd toe pain) 02/18/2024 Travel 01/31/2024 Telephone [facility] [address] [place] [address] Francisco Lincoln MD Medication Management [...] on file Legal Sex Female 5:25 AM BOARD OF EDUCATION SECRETARY Gender Identity Not on file Sexual Orientation [...] Comments Blood Pressure 155/78 02/18/2024 2:11 PM BOARD OF EDUCATION SECRETARY Pulse 63 02/18/2024 2:11 PM BOARD OF EDUCATION SECRETARY Temperature 36.9 C (98.5 F) 06/05/2023 10:43 AM CDT Respiratory Rate 16 03/04/2023 2:01 PM BOARD OF EDUCATION SECRETARY Oxygen Saturation 99% 02/18/2024 2:11 PM BOARD OF EDUCATION SECRETARY Inhaled Oxygen Concentration - - Weight 89 kg (196 lb 3.2 oz) 02/18/2024 2:11 PM BOARD OF EDUCATION SECRETARY Height 158 cm (5' 2.21) 01/10/2024 7:19 [...] MAMMO BILAT SCREENING Routine 04/03/2024 3:16 PM BOARD OF EDUCATION SECRETARY Screening mammogram for breast cancer LIPID PANEL W REFLEX MEASURED LDL Routine 01/10/2024 7:52 AM CDT HYPERCHOLESTEROLEMI A, PURE ANTI HCV Routine 05/24/2023 10:56 AM BOARD OF EDUCATION SECRETARY Acute diarrhea Elevated LFTs COLONOSCOPY DIAGNOSTIC Routine 2020 10:25 AM BOARD OF EDUCATION SECRETARY Hematochezia from Last 3 Months or Most Recently Relevant to Health Maintenance Results * XR MAMMO BILAT SCREENING (04/03/2024 3:16 PM BOARD OF EDUCATION SECRETARY) Anatomical Region Laterality Modality BREASTS, Breast Left, Breast Right Bilateral Mammography Impressions 04/06/2024 11:40 AM BOARD OF EDUCATION SECRETARY There is no radiographic evidence for malignancy. Recommend annual mammograms. MAMMOGRAM ASSESSMENT: ACR 1 Negative PATIENTS: You will also receive a letter with your examination results in an easy to read format. If you have questions about your results, please contact your referring provider. Narrative 04/06/2024 11:40 AM BOARD OF EDUCATION SECRETARY For Patients: As a result of the Century Cures Act, medical imaging exams and procedure reports are released immediately into your electronic medical record. You may view this report before your referring provider. If you have questions, please contact your health care provider. XR MAMMO BILAT SCREENING [[id number]] CLINICAL HISTORY: This is an asymptomatic 64 y.o. patient. INDICATION FOR EXAM: Mammogram Screening. TECHNIQUE: CC & MLO views were obtained. This study was evaluated with the assistance of Computer-Aided Detection. COMPARISON FILM: Yes 11/16/22 [facility] 06/13/20 [facility] FINDINGS: There are scattered areas of fibroglandular [...] LDL-C. Mehdi REAL et al. ANNIKA. 2013;310(19): 0549-9317 (http://education.Sellfy/faq/OZO783) CHOL/HDLC RATIO 3.1 <5.0 (calc) Iggli-W ruben Ricci NON HDL CHOLESTEROL 126 <130 mg/dL (calc) bideo.compepe Ricci Comment: For patients with diabetes plus 1 major ASCVD risk factor, treating to a non-HDL-C goal of <100 mg/dL (LDL-C of <70 mg/dL) is considered a therapeutic option. Blood BLOOD SPECIMEN / Unknown 01/10/2024 7:52 AM CDT 01/10/2024 7:52 AM CDT us Joyce Dean DO CHEMISTRY Final Resul t [facility] [address] [address], [address] [address] * ANTI HCV (05/24/2023 10:56 AM BOARD OF EDUCATION SECRETARY) Pathologist [facility] HEPATITIS C ANTIBODY Non-Reacti ve Non-React mena 05/24/2023 6:31 PM BOARD OF EDUCATION SECRETARY [facility] Comment:Please note, per www .CDC.gov: If a patient is known to be at high risk of HCV infection, or is symptomatic, and the physician's suspicion of HCV infection is high, HCV RNA testing is often employed and is of diagnostic value, even after an initial negative anti-HCV test result. Blood BLOOD SPECIMEN / Unknown Butterfly / Unknown 05/24/2023 10:56 AM BOARD OF EDUCATION SECRETARY 05/24/2023 10:56 AM BOARD OF EDUCATION SECRETARY us Joyce Dean DO SEND OUTS Final Resul t [facility] [address] [place] [address], * COLONOSCOPY DIAGNOSTIC (2020 10:25 AM BOARD OF EDUCATION SECRETARY) us Joyce Dean DO GI PROCEDURE ORD Final Resu lt from Last 3 Months or Most Recently Relevant to Health Maintenance Insurance ALLEGIANCE ALLEGIANCE WC [employer] Member Subscriber Plan / Payer (Ef fective 2020-Present) Name:Disha Ceballos Relation to Subscriber:Employee Name:MICHAEL Date of :1998 (Home) Address: [address] [place] [id number] Payer ID:Not on file Group ID:Not on file Type:Not on file Address: [place] [id number] WC [employer] Member Subscriber Plan / Payer (Ef fective 2021-Present) Name:Disha Ceballos Relation to Subscriber:Employee Name:MICHAEL Date of :1998 (Home) Address: [address] [place] [id number] Payer ID:Not on file Group ID:Not on file Type:Not on file Address: [address] [employer] Advance [...] 6:34 AM 02/15/2018 2:17 AM Care Teams Journalism Teacher Relationship Specialty [place] [address] [place] [address] PCP - General Family Practice 01/30/21 Shaka Sheriff MD Cardiology Cardiovascular Disease 12/21/10 Daly Kemp MD Psychiatry Psychiatry 05/10/15
--- OUTSIDE RECORDS SUMMARY | 2024-04-19 11:41 | XMS_ITS | Continuity of Care Document ---
Author Organization [facility] Address [address] [address] [place] [address] Phone Care Team Providers Care Parcel Carrier Name Role Phone Chris Diamond MD, Nick Unavailable Unavailabl e Advance Directives Directive Yes / No Effective Date File Name No Information Encounters Encounter Description Practice Location Reason(s) For Visit Diagnoses Date Provider Providers Copied on Encounter [facility], [address] [address], [place], [place], [id number], [place] tel:[phone] [facility] No Information 4 Chris Romero. [address] [facility], [facility], [place], [place], [id number] , [place]. tel:[phone] Family History Family Member Type Diagnosis Age At Onset No Information Payers Payer name Insurance type Covered alliance party ID Authoriza tion(s) No Information Social History [...]
[2024-04-19] MEDS: 0.9 % SODIUM CHLORIDE 1000 ml 1,000 ML IV (11:56)
[2024-04-19 12:10] LABS: Lactate Sepsis w/Reflex* 1.5 mmol/L (0.5-1.9)
[2024-04-19 12:11] LABS: Basophils Absolute Auto 0.01 K/uL (0.00-0.30); Basophils Percent Auto 0.2 % (0.0-3.0); Eosinophils Absolute Auto 0.05 K/uL (0.00-0.50); Eosinophils Percent Auto 0.8 % (0.0-7.0); Hematocrit 42.1 % (33.0-51.0); Hemoglobin* 14.6 gm/dL (12.0-16.0); Lymphocytes Absolute Auto 1.77 K/uL (0.90-2.90); Lymphocytes Percent Auto 27.4 % (20-44); Mean Corpuscular HGB Conc 35 gm/dL (32-36); Mean Corpuscular Hemoglobin 30 pg (26-34); Mean Corpuscular Volume 88 fL (80-100); Neutrophils Absolute Auto 4.04 K/uL (1.7-7.0); Neutrophils Percent Auto 62.6 % (42.0-72.0); Platelet Count* 228 K/uL (140-440); RDW Coefficient of Variation % 11.8 % (11.5-15.5); Red Blood Count 4.81 m/uL (4.00-5.20); White Blood Count* 6.45 K/uL (4.50-11.00)
[2024-04-19 12:12] LABS: Slide Review Reflex No
[2024-04-19 12:30] LABS: Chloride* 106 mmol/L (96-114); Potassium* 3.5 mmol/L (3.6-5.1); Sodium* 136 mmol/L (135-149)
[2024-04-19 12:31] LABS: Albumin* 4.4 g/dL (3.3-5.0)
[2024-04-19 12:33] LABS: Creatinine* 0.7 mg/dL (0.5-1.5); Est. Creatinine Clearance* 46.13; Estimated Glomerular Filt Rate 98 ml/min
[2024-04-19 12:34] LABS: Alkaline Phosphatase* 57 U/L (40-150); Anion Gap 12 mEq/L (7-15); Aspartate Amino Transferase* 25 U/L (12-35); Bilirubin Direct* 0.3 mg/dL (0.0-0.5); Bilirubin Total* 0.9 mg/dL (0.1-1.5); Blood Urea Nitrogen* 17 mg/dL (7-30); Calcium* 9.7 mg/dL (8.4-10.6); Carbon Dioxide* 18 mmol/L (20-32); Glucose* 127 mg/dL (60-115); Magnesium* 1.8 mg/dL (1.5-2.6); Total Protein* 6.9 g/dL (6.0-8.3)
[2024-04-19 12:35] LABS: Alanine Aminotransferase* 22 U/L (4-35)
[2024-04-19 12:37] LABS: C Reactive Protein* < 0.5 mg/dL (0.5-1.0)
[2024-04-19 13:00] VITALS: BP 142/74; PULSE 72; RESP 18; O2SAT 97
[2024-04-19 14:09] VITALS: PULSE 84; RESP 18; TEMP 36.3
[2024-04-20 10:23] LABS: C.Difficile Negative (Negative); CDIFFEPI 027 PRESUMPTIVE POSITIVE (Negative)
== END 2024-04-19 13:50 | disposition home or self-care (01) ==
PROVIDERS: Emergency Provider Emergency Medicine; PCP Family Medicine
DX: A04.71 Enterocolitis due to Clostridium difficile, recurrent (principal)
CPT/HCPCS: 36415; 74177; 80048; 80076; 83605; 83735; 85025; 86140; 87045; 87046; 87427; 87493; 96360; 99284; 99285; J7030; Q9967